=== PATIENT | male | born 1970 | race Caucasian/White ===

== ENCOUNTER 2020-06-10 08:31 | Day surgery (SDC) | payer MEDICAID, SELFPAY ==
[2020-06-04 13:54] VITALS: BMI 28.4
--- NOTE | 2020-06-08 15:22 | P.CONAN_ITS ---
Documented by User: Antonietta Perea 06/08/20 15:23 HPI - Anesthesia Eval Consult details Narrative: 49yo M for Colonoscopy Recent polysub binge? per RN assess, will screen DOS PMFSH Past Medical History Medical History Asthma Diabetes Elevated cholesterol HIV (human immunodeficiency virus infection) HTN (hypertension) Hx of duodenal ulcer No family history of adverse response to anesthesia Sleep apnea Surgical History Surgical History (Updated 06/04/20 @ 14:00 by Ema Christiansen) History of esophagogastroduodenoscopy (EGD) Hx of cholecystectomy Social History Social History Alcohol intake: current Alcohol intake frequency: 3 or more drinks per day Smoking Status: Current every day smoker Tobacco Type: Cigarette Years Smoked: 30 Smoked in Last 30 Days: Yes Use of substances other than those prescribed or required for medical reasons: Yes Substance Use Type: Crack/Cocaine Substance Use Frequency: Recent Binge Advance Directives Information Provided: No Recently lost weight without trying: No Meds Allergies Allergy/AdvReac Type Severity Reaction Status Date / Time No Known Allergies Allergy Verified 06/04/20 14:04 Home Medications Medication Instructions Recorded Confirmed Type exrtaffu-qlsrfyqfjxet-cqwlxgn 1 tab PO QPM 06/04/20 06/04/20 History [Triumeq] albuterol sulfate 2 puff INHALATION Q4-6H PRN 06/04/20 06/04/20 History fenofibrate 160 mg PO DAILY 06/04/20 06/04/20 History hydroxyzine pamoate 25 mg PO BID PRN 06/04/20 06/04/20 History lisinopril 10 mg PO DAILY 06/04/20 06/04/20 History metformin 500 mg PO BID 06/04/20 06/04/20 History ranitidine HCl 300 mg PO BEDTIME 06/04/20 06/04/20 History rosuvastatin 20 mg PO DAILY 06/04/20 06/04/20 History Exam Exam Date and Time: June 08, 2020 1522 Height,Weight and Vital Signs: Height 5 ft 10 in Weight 89.811 kg Assessment and Plan Assessment Anesthesia Assessment: Chart Reviewed Documented by User: Abena Guzman 06/10/20 11:18 [facility] Past Medical History Medical History Asthma Diabetes Elevated cholesterol HIV (human immunodeficiency virus infection) HTN (hypertension) Hx of duodenal ulcer No family history of adverse response to anesthesia Sleep apnea Surgical History Surgical History (Updated 06/04/20 @ 14:00 by Ema Christiansen) History of esophagogastroduodenoscopy (EGD) Hx of cholecystectomy Social History Social History Alcohol intake: current Alcohol intake frequency: 3 or more drinks per day Smoking Status: Current every day smoker Tobacco Type: Cigarette Years Smoked: 30 Smoked in Last 30 Days: Yes Use of substances other than those prescribed or required for medical reasons: Yes Substance Use Type: Crack/Cocaine Substance Use Frequency: Recent Binge Advance Directives Information Provided: No Recently lost weight without trying: No Meds Allergies Allergy/AdvReac Type Severity Reaction Status Date / Time No Known Allergies Allergy Verified 06/04/20 14:04 Home Medications Medication Instructions Recorded Confirmed Type fmgckqsr-odcftsojuccr-uvgbqob 1 tab PO QPM 06/04/20 06/04/20 History [Triumeq] albuterol sulfate 2 puff INHALATION Q4-6H PRN 06/04/20 06/04/20 History fenofibrate 160 mg PO DAILY 06/04/20 06/04/20 History hydroxyzine pamoate 25 mg PO BID PRN 06/04/20 06/04/20 History lisinopril 10 mg PO DAILY 06/04/20 06/04/20 History metformin 500 mg PO BID 06/04/20 06/04/20 History ranitidine HCl 300 mg PO BEDTIME 06/04/20 06/04/20 History rosuvastatin 20 mg PO DAILY 06/04/20 06/04/20 History Exam Height,Weight and Vital Signs: Vital Signs Temp Pulse Resp BP Pulse Ox 06/10/20 09:04 98.1 F 80 16 111/80 99 Lab Results 06/10/20 06/10/20 Range/Units 09:13 Unknown POC Glucose 155 H (60-115) mg/dL Urine Opiates Screen Not Detected (Not Detect) Ur Barbiturates Screen Not Detected (Not Detect) Ur Phencyclidine Scrn Not Detected (Not Detect) Ur Amphetamines Screen Not Detected (Not Detect) U Benzodiazepines Scrn Not Detected (Not Detect) Urine Cocaine Screen Not Detected (Not Detect) U Marijuana (THC) Screen Not Detected (Not Detect) EKG:NSR 76. QT/QTc. 406/456ms. Normal ECG Trop I High Sens. <3.5ng/L Airway Mallampati Class: II TM Dist: >3cm Neck ROM: Full Heart: RRR Lungs: CTAB Assessment and Plan Assessment Anesthesia Assessment: Anesthesia Plan Discussed and Chart Reviewed Final Anesthetic Review NPO: Yes ASA Class: III Final Preanesthetic Review: No Changes in Pt Med Stat and Anes Risks/Benef Reviewed Patient Risk: Intermediate Anesthetic Plan Anesthetic Plan: MAC: Disposition: Standard PACU
--- NOTE | 2020-06-10 | ECG_ITS ---
Test Reason : HX OF DRUG ABUSE PRE Blood Pressure : / mmHG Vent. Rate : 076 BPM Atrial Rate : 076 BPM P-R Int : 158 ms QRS Dur : 108 ms QT Int : 406 ms P-R-T Axes : 049 -26 030 degrees QTc Int : 456 ms Normal sinus rhythm Left axis deviation RSR' or QR pattern in V1 suggests right ventricular conduction delay Abnormal ECG No significant changes seen Referred By: Abena Guzman Electronically Signed By:GAEL GILBERT MD
--- NOTE | 2020-06-10 08:46 | PC.NURSE ---
patient states he used cocaine two weeks ago
[2020-06-10 09:04] VITALS: BP 111/80; PULSE 80; RESP 16; TEMP 36.7; O2SAT 99
[2020-06-10] MEDS: Lactated Ringers 1,000 ML 100 ML IVCONT (09:11)
--- NOTE | 2020-06-10 09:21 | P.HPSUR_ITS ---
Pre-Procedural Eval Section B Chief Complaint: SCREENING Relevant Family History (Specify if Yes): No Relevant Social History: Other (specify) (cocaine) Present Medications: see Short Stay Collaborative assessment Medical History: Significant History (asthma, HTN, DM, alcohol use in past) History of Previous Operations: Relevant previous surgery/procedure and date(s) (cholecystectomy) Allergies: Allergies Allergy/AdvReac Type Severity Reaction Status Date / Time No Known Allergies Allergy Verified 06/04/20 14:04 Review of Systems Sugical H&P ROS: Negative: Constitution, Cardiovascular, Respiratory, Neurological, Psychiatric, Hem-Onc, Allergic/Immunologic, Gastrointestinal, Gen itourinary, Musculoskeletal, Integumentary, Endocrine and Eyes/Ears/Nose/Throat Exam Surgical H&P Exam: Normal: HEENT, Normal: Heart, Normal: Lungs, Normal: Extremities, Normal: Abdomen, Normal: Skin and Normal: Neurological Plan Diagnosis/Plan: Unchanged Patient has been examined and remains a candidate for the planned procedure
[2020-06-10 09:44] LABS: Amphetamine Screen Urine Not Detected (Not Detect); Barbiturates, Urine Not Detected (Not Detect); Benzodiazepines Screen Urine Not Detected (Not Detect); Cannabinoid Screen Urine Not Detected (Not Detect); Cocaine Screen Urine Not Detected (Not Detect); Opiate Screen Urine Not Detected (Not Detect); Phencyclidine Screen Urine Not Detected (Not Detect)
[2020-06-10 09:49] LABS: Glucose, Whole Blood 155 mg/dL (60-115)
--- NOTE | 2020-06-10 10:08 | PC.NURSE ---
patient awaiting to go to procedure but had an ekg because of history of cocaine use and a trop was drawn pre-op awaiting results. urine sample already sent down this am but lab forget to receive it at 0930 when i was calling for the result.
[2020-06-10 10:44] LABS: Troponin-I High Sensitivity < 3.5 ng/L (<3.5-35.0)
--- NOTE | 2020-06-10 11:34 | PM.OP ---
Brief Operative Note Date of procedure: 06/10/20 Pre-op diagnosis: colon screen Post-op diagnosis: same Procedure: see op note Surgeon: Judith Coppola MD Anesthesia: MAC Estimated blood loss (mL): 0 Condition: stable Disposition: PACU
--- NOTE | 2020-06-10 11:34 | W.PM.OPN ---
Operative Note Operative Note Narrative: Operative Information Procedure Description: Colonoscopy COLONOSCOPY Instrument: Olympus variable stiffness pediatric scope 190L Colonoscopy Monitoring: Vital signs and clinical assessment, continuous EKG monitoring, Pulse oximetry, Carbon Dioxide monitoring and blood pressure monitoring were done throughout the procedure. Colon withdrawal time was 29 minutes. Procedure: The patient was placed in the left lateral decubitis position and pre-procedure medications were administered. After a digital rectal examination of the ano-rectum, the video colonoscope was inserted into the rectum and advanced through the colon to the cecum/TI. The colonoscope was slowly withdrawn in a retrograde panoramic fashion and the colon mucosa was carefully examined including a retroflexed view of the rectum. Findings and interventions are described below. Procedure Difficulty: easy Findings: Terminal Ileum-normal Cecum:normal Ascending Colon: 8 mm sessile polyp seen on retroflexion and removed wtih forceps Transverse Colon -normal Descending Colon:normal Sigmoid Colon: several diverticula noted, at around 40 cm 2 polyps noted arising from a single stalk with the combined lesions measuring about 16-20 mm. The stalk was injected with few cc of epinephrine and then the polyps were removed with hot snare endocut setting. The resulting defect was ablated around the edges with soft tip coag. The stalk base was clipped x 1 and then the top of the defect clipped with x 2 clips-total 3 clips. Rectum: Retroflexion with large internal hemorrhoids, grade II, external hemorrhoid also noted. Anorectum - external hemorrhoid, internal hemorrhoids seen at verge Colon preparation: [place] Bowel Preparation Scale Right colon; 1 Transverse colon: 2 Left colon; 2 (0 = Unprepared colon segment with mucosa not seen due to solid stool that cannot be cleared. 1 = Portion of mucosa of the colon segment seen, but other areas of the colon segment not well seen due to staining, residual stool and/or opaque liquid. 2 = Minor amount of residual staining, small fragments of stool and/or opaque liquid, but mucosa of colon segment seen well. 3 = Entire mucosa of colon segment seen well with no residual staining, small fragments of stool or opaque liquid) Impression and Post Procedure Diagnosis: polyps internal and external hemorrhoids diverticulosis Plan: High fiber diet leaflet Avoid straining at stool, epsom salts and sitz bath, anusol supps or cream prn, may need colorectal referral Repeat Colonoscopy in 6-12 months due to prep come to ED if any worsening abdominal pain or bleeding, avoid nsaid for 1 week Above findings were reviewed with the patient and relevant handouts were provided if indicated.
[2020-06-10 11:40] VITALS: BP 82/40; PULSE 76; RESP 16; TEMP 36.1; O2SAT 99
[2020-06-10 11:46] VITALS: BP 84/52; PULSE 72; RESP 16; O2SAT 98
[2020-06-10 11:57] VITALS: BP 100/55; PULSE 85; RESP 16; O2SAT 98
[2020-06-10 12:05] VITALS: BP 100/69; PULSE 76; RESP 16; O2SAT 98
--- NOTE | 2020-06-10 12:30 | HO.POSTANES ---
Post Anesthesia Evaluation Post Anesthesia Evaluation Vital Signs: Vital Signs Temp Pulse Resp BP Pulse Ox 06/10/20 12:05 97 F 76 16 100/69 98 06/10/20 11:57 85 16 100/55 L 98 06/10/20 11:46 72 16 84/52 L 98 06/10/20 11:40 97 F 76 16 82/40 L 99 06/10/20 09:04 98.1 F 80 16 111/80 99 Anesthesia: Monitored (tiva) Mental Status: Awake Pain Control: Satisfactory Nausea/Vomiting: None Hydration: Adequate Anesthesia-Related Issues: No Anes. Related Issues
== END 2020-06-10 23:59 | disposition home or self-care (01) ==
PROVIDERS: Anesthesiology; PCP Internal Medicine; Visit Provider Internal Medicine Gastroenterology
PROC: 0DJD8ZZ Inspection of Lower Intestinal Tract, Via Natural or Artificial Opening Endoscopic (ICD-10-PCS; CPT 45378; principal; 2020-06-10 10:00)
DX: Z12.11 Encounter for screening for malignant neoplasm of colon (principal); D12.2 Benign neoplasm of ascending colon; D12.5 Benign neoplasm of sigmoid colon; K57.30 Diverticulosis of large intestine without perforation or abscess without bleeding; K64.1 Second degree hemorrhoids; K64.4 Residual hemorrhoidal skin tags; I10 Essential (primary) hypertension; E11.9 Type 2 diabetes mellitus without complications; G47.30 Sleep apnea, unspecified; J45.909 Unspecified asthma, uncomplicated; Z90.49 Acquired absence of other specified parts of digestive tract; B20 Human immunodeficiency virus [HIV] disease; F17.210 Nicotine dependence, cigarettes, uncomplicated; Z79.84 Long term (current) use of oral hypoglycemic drugs; Z79.899 Other long term (current) drug therapy; F14.10 Cocaine abuse, uncomplicated; Z72.89 Other problems related to lifestyle
CPT/HCPCS: 45385; 45380; 45381; 80307; 82947; 84484; 88305; 93005; J0171

== ENCOUNTER 2020-06-18 09:45 | Outpatient (REF) | payer MEDICAID, SELFPAY | END 2020-06-18 09:46 | disposition home or self-care (01) | LOC: HO.LAB 09:45 | PROVIDERS: Visit Provider Internal Medicine | DX: Z20.828 Contact with and (suspected) exposure to other viral communicable diseases (principal) | CPT/HCPCS: C9803; U0003 ==

== ENCOUNTER 2020-07-15 13:06 | Outpatient (REF) | payer MEDICAID, SELFPAY | END 2020-07-15 13:07 | disposition home or self-care (01) | LOC: HO.LAB 13:06 | PROVIDERS: PCP Internal Medicine; Visit Provider Internal Medicine | DX: Z20.828 Contact with and (suspected) exposure to other viral communicable diseases (principal) | CPT/HCPCS: C9803; U0003 ==

== ENCOUNTER → 2020-08-02 14:08 | Outpatient (BNVA) | payer MEDICAID, SELFPAY | PROVIDERS: Visit Provider Internal Medicine Gastroenterology | DX: Z76.89 Persons encountering health services in other specified circumstances (principal) ==

== ENCOUNTER 2022-02-20 16:08 | Emergency (ER) | payer MEDICAID, SELFPAY ==
--- NOTE | ~2022-02-20 | XR_ITS ---
EXAMINATION: XR HAND, RIGHT CLINICAL INFORMATION: Hand pain COMPARISON: None TECHNIQUE: PA, lateral, and oblique views of the right hand. FINDINGS: Bones are in normal anatomic alignment with no acute fracture or dislocation. Metallic foreign bodies seen along the dorsal aspect of the wrist at the level of the radiocarpal joint space. XR/XR hand RT 2V IMPRESSION: 4 mm radiopaque foreign body seen along the dorsal soft tissues of the wrist. Underlying bony structures are essentially unremarkable. No acute fracture or dislocation.
[2022-02-20 16:38] VITALS: BP 129/84; PULSE 97; RESP 16; TEMP 36.6; O2SAT 99; BMI 27.3
--- NOTE | 2022-02-20 21:56 | ED.EXTPRO ---
HPI - Extremity Problem General Chief complaint: Extremity Injury, Upper Stated complaint: R hand inj Time Seen by Provider: 02/20/22 21:56 Source: patient Mode of arrival: ambulatory History of Present Illness HPI Narrative: 51-year-old male with a past medical history of asthma, diabetes, HLD, HIV, HTN, sleep apnea, presenting to the ED complaining of right hand crush injury s/p heavy pipe falling on hand this morning. Reports pain with ROM. Denies numbness, tingling, injury to other area MD Complaint: extremity pain and extremity swelling Onset (ago): hour(s) Related Data Home Medications Medication Instructions Recorded Confirmed abacavir 600 mg-dolutegravir 50 1 tab PO QPM 06/04/20 06/04/20 mg-lamivudine 300 mg tablet (Triumeq) albuterol sulfate 90 mcg/actuation 2 puff inhalation Q4-6H PRN 06/04/20 06/04/20 aerosol inhaler Shortness Of Breath fenofibrate 160 mg tablet 160 mg PO DAILY 06/04/20 06/04/20 hydroxyzine pamoate 25 mg capsule 25 mg PO BID PRN Anxiety 06/04/20 06/04/20 lisinopril 10 mg tablet 10 mg PO DAILY 06/04/20 06/04/20 metformin 500 mg tablet 500 mg PO BID 06/04/20 06/04/20 ranitidine HCl 300 mg tablet 300 mg PO BEDTIME 06/04/20 06/04/20 rosuvastatin 20 mg tablet 20 mg PO DAILY 06/04/20 06/04/20 Allergies Allergy/AdvReac Type Severity Reaction Status Date / Time No Known Allergies Allergy Verified 06/04/20 14:04 Review of Systems Review of Systems: Constitutional: No Weight loss, No Fever, No Chills ENT/Mouth: No Ear Pain, No Nasal Congestion, No sore throat, No Rhinorrhea, No Swallowing Difficulty Cardiovascular: No Chest Pain, No SOB Respiratory: No Cough, No Sputum Gastrointestinal: No Nausea, No Vomiting, No Diarrhea, No Constipation, No Abdominal pain Genitourinary: No Dysuria, No Urinary Frequency, No Flank Pain Musculoskeletal: + joint pain, No Myalgias, + Joint Swelling Skin: No Skin Lesions, No rash Neuro: No Weakness, No Numbness, No Paresthesias Yes all other systems are reviewed and are negative Constitutional: Constitutional: Reports as per [facility] Past Medical History Attestation statement: The following information was validated with the patient. Medical History Asthma Diabetes Elevated cholesterol HIV (human immunodeficiency virus infection) HTN (hypertension) Hx of duodenal ulcer No family history of adverse response to anesthesia Sleep apnea Surgical History (Updated 06/04/20 @ 14:00 by Ema Christiansen RN) History of esophagogastroduodenoscopy (EGD) Hx of cholecystectomy Social History Social History Alcohol intake: current Alcohol intake frequency: 3 or more drinks per day Years Smoked: 30 Substance Use Type: Crack/Cocaine Physical Exam Vital Signs: Vital Signs: Last Vital Signs Temp 97.9 F 02/20/22 16:38 Pulse 97 02/20/22 16:38 Resp 16 02/20/22 16:38 BP 129/84 02/20/22 16:38 Pulse Ox 99 02/20/22 16:38 O2 Del Method 02/20/22 16:38 BMI result Body Mass Index 27.3 Const: General: cooperative, healthy appearing and no acute distress Orientation/consciousness: patient oriented x3 Limitations: no limitations HEENT: Head: Yes normal to inspection and Yes atraumatic Ears: hearing grossly normal bilaterally General nose exam: Normal external nose present Face and sinus: Yes normal facial exam Eyes: General: appearance normal, both eyes and all related structures EOM: EOMs intact bilaterally Neck: Neck: Yes normal visual inspection and Yes no meningeal signs Resp: Effort & Inspection: normal respiratory effort and no respiratory distress Cardio: Rate: regular rate Heart sounds: S1 normal heart sound present and S2 normal heart sound present Peripheral pulses: radial pulses present Skin: Rashes: no rashes Wounds: no wounds Neuro: General: patient oriented x3, tone normal and no meningeal signs Gait exam (Neuro): Normal gait present Extrem: Other: Volar aspect of right hand with notable swelling and ecchymosis to 1st and 2nd metacarpals, tender to palpation. Full range of motion intact to hand and digits with pain. Wrist nontender, no snuffbox tenderness. Neurovascularly intact Course Course Course Narrative: XR hand RT 2V IMPRESSION: 4 mm radiopaque foreign body seen along the dorsal soft tissues of the wrist. Underlying bony structures are essentially unremarkable. No acute fracture or dislocation >> patient reports metal foreign body has been in hand x 20 years. Will apply Harvey wrap for compression and comfort Results discussed with patient including worrisome signs and symptoms and strict return precautions, and when to return to the emergency department. They verbalized understanding and feel safe for discharge at this time. MDM - Extremity (Nontraumatic) MDM Narrative Medical decision making narrative: 51-year-old male with a past medical history of asthma, diabetes, HLD, HIV, HTN, sleep apnea, presenting to the ED complaining of right hand crush injury s/p heavy pipe falling on hand this morning. On exam vital signs stable, NAD/nontoxic appearing, physical exam as above. Concern for fracture versus sprain Plan: X-rays Medical Records Attestation: I reviewed the patient's medical records. Lab Data Attestation: I reviewed the patient's lab results. Discharge Plan Discharge Clinical Impression: Hand injury Patient Disposition: Home, Self-Care Instructions: Hand Sprain (ED) Additional Instructions: Your x-ray does not show any fracture. Does show foreign body in her hand which youre aware of. wear Harvey wrap for comfort and stability. Ice, elevate, take Tylenol and Motrin. Follow up with her doctor Prescriptions: No Action metformin 500 mg Tablet 500 mg PO BID ranitidine HCl 300 mg Tablet 300 mg PO BEDTIME lisinopril 10 mg Tablet 10 mg PO DAILY albuterol sulfate 90 mcg/actuation Hfa Aerosol Inhaler 2 puff INHALATION Q4-6H PRN (Reason: Shortness Of Breath) hydroxyzine pamoate 25 mg Capsule 25 mg PO BID PRN (Reason: Anxiety) rosuvastatin 20 mg Tablet 20 mg PO DAILY fenofibrate 160 mg Tablet 160 mg PO DAILY Triumeq 600-50-300 mg Tablet 1 tab PO QPM Referrals: Celia Manriquez MD [Primary Care Provider] -
== END 2022-02-20 22:11 | disposition home or self-care (01) ==
PROVIDERS: Emergency Provider Internal Medicine; PCP Internal Medicine
DX: S67.21XA Crushing injury of right hand, initial encounter (principal); Y29.XXXA Contact with blunt object, undetermined intent, initial encounter; Y93.9 Activity, unspecified; Y92.9 Unspecified place or not applicable; Y99.9 Unspecified external cause status; Z79.899 Other long term (current) drug therapy
CPT/HCPCS: 73120; 99282; 99283

== ENCOUNTER 2022-03-01 15:56 | Emergency (ER) | payer MEDICAID, SELFPAY ==
--- NOTE | ~2022-03-01 | XR_ITS ---
EXAMINATION: XR CHEST CLINICAL INFORMATION: Chest pain COMPARISON: Chest x-ray 07/09/2019 TECHNIQUE: Frontal view of the chest was obtained. FINDINGS: The lungs are clear. No airspace consolidation, pleural effusion, or pneumothorax. The cardiomediastinal silhouette is within normal limits. No acute osseous injury. XR/XR chest 1V IMPRESSION: No acute pulmonary process.
--- NOTE | 2022-03-01 15:59 | ECG_ITS ---
Test Reason : CHEST PAIN Blood Pressure : / mmHG Vent. Rate : 075 BPM Atrial Rate : 075 BPM P-R Int : 158 ms QRS Dur : 102 ms QT Int : 384 ms P-R-T Axes : 048 -25 022 degrees QTc Int : 428 ms Normal sinus rhythm Normal ECG When compared with ECG of 10-JUN-2020 10:53, No significant change was found Referred By: Generic ED Physician Electronically Signed By:BOB TOLENTINO
[2022-03-01 16:26] VITALS: BP 143/86; PULSE 80; RESP 18; TEMP 36.8; O2SAT 98; BMI 28.0
[2022-03-01 16:47] LABS: MANUAL DIFF FLAG NO
[2022-03-01 16:51] LABS: Basophils Absolute Auto 0.1 X10*3/uL (0.0-0.2); Basophils Percent Auto 1.1 % (0-2); Eosinophils Absolute Auto 0.2 X10*3/uL (0.0-0.4); Eosinophils Percent Auto 2.8 % (0-4); Hemoglobin 13.9 g/dl (14.0-18.0); Imm Gran Abs Auto 0.03 X10*3/uL (0.00-0.03); Imm Gran Pct Auto 0.4 % (0.0-0.4); Lymphocytes Absolute Auto 3.4 X10*3/uL (1.2-4.9); Lymphocytes Percent Auto 41.2 % (20-40); Mean Corpuscular HGB Conc 33.9 g/dl (31.0-36.0); Mean Corpuscular Volume 88.6 fL (80.0-98.0); Mean Platelet Volume 9.4 fL (9.4-12.4); Monocytes Absolute Auto 0.4 X10*3/uL (0.1-1.2); Monocytes Percent Auto 5.3 % (2-11); Neutrophils Absolute Auto 4.1 x10*3/uL (2.0-8.3); Neutrophils Percent Auto 49.2 % (45-73); Platelet Count 354 X10*3/uL (160-400); Red Blood Count 4.63 X10*6/uL (4.60-5.80); Red Cell Distribution Width 12.4 % (11.0-16.0); White Blood Count 8.3 X10*3/uL (4.8-10.8)
[2022-03-01 17:01] LABS: Anion Gap 11 (12-20); Blood Urea Nitrogen 18 mg/dL (9-16); Calcium 9.8 mg/dL (8.4-10.2); Carbon Dioxide 26 mmol/L (22-29); Chloride 106 mmol/L (96-108); Creatinine Clr Calc Pharmacy 99.6; Estimated Glomerular Filt Rate > 60; Glucose Random 135 mg/dL (60-115); Potassium 4.3 mmol/L (3.3-5.1); Sodium 139 mmol/L (135-145)
[2022-03-01 17:09] LABS: Troponin-I High Sensitivity < 3.5 ng/L (<3.5-35.0)
[2022-03-01 23:30] LABS: D Dimer High Sensitivity < 150 NG/ML
--- NOTE | 2022-03-01 23:34 | ED.CHESTPAIN ---
HPI - Chest Pain General Chief Complaint: Chest Pain Stated Complaint: chest pain rad. L arm Time Seen by Provider: 03/01/22 22:48 Source: patient Mode of arrival: ambulatory Limitations: no limitations History of Present Illness HPI narrative: This is a 51-year-old male presenting to the emergency department with complaints of chest pain since last night, patient tells me that he woke up with chest discomfort and some shortness of breath. He tells me it is substernal in nature, nonradiating. He tells me it last about a minute and then resolves. He tells me that this is never happened to him before. He reports that he was recently started on doxycycline on Sunday and since he has been taking this he has not been feeling the same. He denies any personal or family cardiac history. Patient is a current daily smoker. He denies shortness of breath, chest pain, nausea, vomiting, dizziness, fevers, chills headache or vision changes at this time. Patient tells me that at this time he is not having symptoms however he wants to get checked out as he did have the symptoms sporadically throughout the day. MD complaint: chest pain Onset (ago): day(s) (1) Timing of current episode: episodic Prior episodes: No Onset: during rest Related Data Home Medications Medication Instructions Recorded Confirmed abacavir 600 mg-dolutegravir 50 1 tab PO QPM 06/04/20 06/04/20 mg-lamivudine 300 mg tablet (Triumeq) albuterol sulfate 90 mcg/actuation 2 puff inhalation Q4-6H PRN 06/04/20 06/04/20 aerosol inhaler Shortness Of Breath fenofibrate 160 mg tablet 160 mg PO DAILY 06/04/20 06/04/20 hydroxyzine pamoate 25 mg capsule 25 mg PO BID PRN Anxiety 06/04/20 06/04/20 lisinopril 10 mg tablet 10 mg PO DAILY 06/04/20 06/04/20 metformin 500 mg tablet 500 mg PO BID 06/04/20 06/04/20 ranitidine HCl 300 mg tablet 300 mg PO BEDTIME 06/04/20 06/04/20 rosuvastatin 20 mg tablet 20 mg PO DAILY 06/04/20 06/04/20 Allergies Allergy/AdvReac Type Severity Reaction Status Date / Time No Known Allergies Allergy Verified 06/04/20 14:04 Review of Systems Review of Systems: Constitutional : No Weight loss, No Fever, No Chills, No Fatigue, No Malaise ENT/Mouth : No sore throat, No Rhinorrhea Eyes: No Eye Pain, No Swelling, No Redness Cardiovascular : No Chest Pain, No SOB, No Dyspnea on Exertion, No Orthopnea, No Edema, No Palpitations Respiratory : No Cough, No Sputum, No Wheezing Gastrointestinal : No Nausea, No Vomiting, No Diarrhea, No Constipation, No abdominal Pain, No Hematochezia, No Melena Genitourinary : No Dysuria, No Urinary Frequency, No Hematuria, Musculoskeletal : No joint pain, No Myalgias, No Joint Swelling Skin : No Skin Lesions, No rash Neuro : No Weakness, No Numbness, No Dizziness, No Headache Psych : No Anxiety/Panic, No Depression All other systems reviewed and are negative Yes all other systems are reviewed and are negative [facility] Past Medical History Attestation statement: The following information was validated with the patient. Source: old records reviewed and nursing notes reviewed Medical History Asthma Diabetes Elevated cholesterol HIV (human immunodeficiency virus infection) HTN (hypertension) Hx of duodenal ulcer No family history of adverse response to anesthesia Sleep apnea Surgical History History of esophagogastroduodenoscopy (EGD) Hx of cholecystectomy Social History Social History Alcohol intake: current Alcohol intake frequency: 3 or more drinks per day Years Smoked: 30 Substance Use Type: Crack/Cocaine Advance Directives: No Advance Directives Information Provided: No Physical Exam Vital Signs: Vital Signs: Last Vital Signs Temp 98.2 F 03/01/22 16:26 Pulse 80 03/01/22 16:26 Resp 18 03/01/22 16:26 BP 143/86 H 03/01/22 16:26 Pulse Ox 98 03/01/22 16:26 O2 Del Method 03/01/22 16:26 BMI result Body Mass Index 28.0 VSS Appearance: Alert.? Oriented X3.? No acute distress.? Head: Normocephalic, atraumatic, no step-offs or deformities Eyes: Pupils equal, round and reactive to light.? ENT: Pharynx normal.? Neck: Normal inspection.? Neck supple.? CVS: Normal heart rate and rhythm.? Pulses normal.?No pain to palpation Respiratory: No respiratory distress.? Breath sounds normal.? Abdomen: Soft and nontender.? Skin: Skin warm and dry.? Normal skin color.? Normal skin turgor.? Extremities: No lower extremity edema.? No calf ttp. 5/5 strength to bilateral upper and lower extremities Neuro: Oriented X 3.? No motor deficit.? No sensory deficit. CN 2-12 intact Course Reevaluation(s) Reevaluation #1: CBC within normal limits. Chemistry with no acute electrolyte abnormalities requiring intervention. Initial troponin negative, EKG nonischemic. Second 1 pending at this time. D-dimer negative, unlikely PE. Chest x-ray with no acute findings. Time: 23:39 Reevaluation #2: Second troponin negative. Again EKG nonischemic, therefore low suspicion for ACS. Patient without chest pain or shortness of breath at this time. Advised him to follow up with Cardiology, and return with new or worsening symptoms. At this time I feel comfortable discharge home with strict return precautions. Time: 23:48 MDM - Chest Pain MDM Narrative Medical decision making narrative: 2230 51 yo m no significant pmhx presents w/ sharp sub sternal cp that is intermittent in nature. Denies sx at this time PE benign Unlikely ACS, PE, cardiomyopathy, pneumonia. Will obtain basic labs, troponin, chest x-ray, EKG Medical Records Data Attestation: I reviewed the patient's medical records. Lab Data Attestation: I reviewed the patient's lab results. Result diagrams: 03/01/22 16:42 03/01/22 16:42 Labs: Lab Results 03/01/22 03/01/22 03/01/22 Range/Units 16:42 16:42 16:42 WBC 8.3 (4.8-10.8) X10*3/uL RBC 4.63 (4.60-5.80) X10*6/uL Hgb 13.9 L (14.0-18.0) g/dl Hct 41.0 L (42.0-52.0) % MCV 88.6 (80.0-98.0) fL MCH 30.0 (27.0-33.0) pg MCHC 33.9 (31.0-36.0) g/dl RDW 12.4 (11.0-16.0) % Plt Count 354 (160-400) X10*3/uL MPV 9.4 (9.4-12.4) fL Immature Gran % (Auto) 0.4 (0.0-0.4) % Neut % (Auto) 49.2 (45-73) % Lymph % (Auto) 41.2 H (20-40) % Gregory % (Auto) 5.3 (2-11) % Eos % (Auto) 2.8 (0-4) % Baso % (Auto) 1.1 (0-2) % Lymph # (Auto) 3.4 (1.2-4.9) X10*3/uL Gregory # (Auto) 0.4 (0.1-1.2) X10*3/uL Eos # (Auto) 0.2 (0.0-0.4) X10*3/uL Baso # (Auto) 0.1 (0.0-0.2) X10*3/uL Abs Immat Gran (auto) 0.03 (0.00-0.03) X10*3/uL Absolute Neuts (auto) 4.1 (2.0-8.3) x10*3/uL Absolute Nucleated RBC 0.000 (0.0-0.012) X10*3/uL Nucleated RBC % (auto) 0.0 (0.0-0.2) /100WBC D-Dimer High Sensitivty NG/ML Sodium 139 (135-145) mmol/L Potassium 4.3 (3.3-5.1) mmol/L Chloride 106 (96-108) mmol/L Carbon Dioxide 26 (22-29) mmol/L Anion Gap 11 L (12-20) BUN 18 H (9-16) mg/dL Creatinine 0.99 (0.5-1.4) mg/dL Estim Creat Clear Calc 99.6 Estimated GFR > 60 Random Glucose 135 H (60-115) mg/dL Calcium 9.8 (8.4-10.2) mg/dL Troponin I High Sens < 3.5 (<3.5-35.0) ng/L 03/01/22 03/01/22 Range/Units 23:05 23:05 WBC (4.8-10.8) X10*3/uL RBC (4.60-5.80) X10*6/uL Hgb (14.0-18.0) g/dl Hct (42.0-52.0) % MCV (80.0-98.0) fL MCH (27.0-33.0) pg MCHC (31.0-36.0) g/dl RDW (11.0-16.0) % Plt Count (160-400) X10*3/uL MPV (9.4-12.4) fL Immature Gran % (Auto) (0.0-0.4) % Neut % (Auto) (45-73) % Lymph % (Auto) (20-40) % Gregory % (Auto) (2-11) % Eos % (Auto) (0-4) % Baso % (Auto) (0-2) % Lymph # (Auto) (1.2-4.9) X10*3/uL Gregory # (Auto) (0.1-1.2) X10*3/uL Eos # (Auto) (0.0-0.4) X10*3/uL Baso # (Auto) (0.0-0.2) X10*3/uL Abs Immat Gran (auto) (0.00-0.03) X10*3/uL Absolute Neuts (auto) (2.0-8.3) x10*3/uL Absolute Nucleated RBC (0.0-0.012) X10*3/uL Nucleated RBC % (auto) (0.0-0.2) /100WBC D-Dimer High Sensitivty < 150 NG/ML Sodium (135-145) mmol/L Potassium (3.3-5.1) mmol/L Chloride (96-108) mmol/L Carbon Dioxide (22-29) mmol/L Anion Gap (12-20) BUN (9-16) mg/dL Creatinine (0.5-1.4) mg/dL Estim Creat Clear Calc Estimated GFR Random Glucose (60-115) mg/dL Calcium (8.4-10.2) mg/dL Troponin I High Sens < 3.5 (<3.5-35.0) ng/L ECG Data ECG #1: Attestation: I personally reviewed and interpreted this ECG as follows: ECG interpretation date: 03/01/22 ECG interpretation time: 23:41 Prior ECG tracings: available for review Interpretation: Ventricular rate of 75, [place] normal, QRS normal, QT/QTC normal. EKG with normal sinus rhythm, no ST elevations or inversions concerning for ischemia. Significant changes when compared to EKG of 06/10/2020. Critical Care Time Critical Care Time Critical Care Time: No Discharge Plan Discharge Clinical Impression: Chest pain not due to acute coronary syndrome Patient Disposition: Home, Self-Care Instructions: Noncardiac Chest Pain (ED), Chest Wall Pain (ED) Additional Instructions: Take your medications as prescribed. If you were prescribed antibiotics today, it is important that you take your medication to their entirety, do not skip any doses, do not finish them early. Follow-up with your primary care provider this week. Return to the emergency department with new or worsening symptoms. Such as fevers, chills, chest pain, shortness of breath, nausea, vomiting, dizziness, headache, vision changes, lethargy In case of emergency call 911 Follow-up with cardiology if symptoms continue. Your laboratory studies today and her chest x-ray looked reassuring. Prescriptions: No Action metformin 500 mg Tablet 500 mg PO BID ranitidine HCl 300 mg Tablet 300 mg PO BEDTIME lisinopril 10 mg Tablet 10 mg PO DAILY albuterol sulfate 90 mcg/actuation Hfa Aerosol Inhaler 2 puff INHALATION Q4-6H PRN (Reason: Shortness Of Breath) hydroxyzine pamoate 25 mg Capsule 25 mg PO BID PRN (Reason: Anxiety) rosuvastatin 20 mg Tablet 20 mg PO DAILY fenofibrate 160 mg Tablet 160 mg PO DAILY Triumeq 600-50-300 mg Tablet 1 tab PO QPM Referrals: Celia Manriquez MD [Primary Care Provider] - 2 days Terrence Yun MD [Physician] - 1 week Stand Alone Forms: Work/School Release
[2022-03-01 23:42] LABS: Troponin-I High Sensitivity < 3.5 ng/L (<3.5-35.0)
[2022-03-01 23:56] VITALS: BP 130/91; PULSE 61; RESP 13; O2SAT 100
--- NOTE | 2022-03-02 00:06 | PC.NURSE ---
no contact with pt until discharge, pt deemed stable for discharge by MD, pt verbalizes understanding of d/c instructions, stable gait noted.
== END 2022-03-02 00:09 | disposition home or self-care (01) ==
PROVIDERS: Physician Assistant; Emergency Provider Internal Medicine; PCP Internal Medicine
DX: R07.89 Other chest pain (principal); B20 Human immunodeficiency virus [HIV] disease; I10 Essential (primary) hypertension; E11.9 Type 2 diabetes mellitus without complications; E78.5 Hyperlipidemia, unspecified; Z79.84 Long term (current) use of oral hypoglycemic drugs; Z79.02 Long term (current) use of antithrombotics/antiplatelets
CPT/HCPCS: 36415; 71045; 80048; 84484; 85025; 85379; 93005; 99284

== ENCOUNTER 2023-03-31 10:38 | Emergency (ER) | payer MEDICAID, SELFPAY ==
--- NOTE | ~2023-03-31 | XR_ITS ---
EXAMINATION: XR ELBOW, LEFT CLINICAL INFORMATION: Pain COMPARISON: None available. TECHNIQUE: AP, lateral, and oblique views of the left elbow. FINDINGS: No acute visible fracture or dislocation. Joint spaces and alignment are maintained. Mild soft tissue prominence along the olecranon, nonspecific. XR/XR elbow LT min 3V IMPRESSION: 1. No acute visible fracture or dislocation. 2. Mild soft tissue prominence along the olecranon, nonspecific.
--- NOTE | 2023-03-31 11:16 | ED.EXTPRO ---
HPI - Extremity Problem General Chief complaint: Extremity Injury, Upper Stated complaint: L elbow pain Time Seen by Provider: 03/31/23 11:23 Source: patient Mode of arrival: ambulatory Limitations: no limitations History of Present Illness HPI Narrative: Patient is a 52-year-old left-hand dominant male presenting emergency department with 1 week of progressively worsening left lateral elbow pain. 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 Reports that pain was tolerable at onset and has significantly worsened over the last 24 hours. He has utilized ibuprofen with little relief. Denies any numbness or tingling to left arm or hand. States pain worsens with extension of elbow. Denies any trauma. MD Complaint: joint pain Onset (ago): day(s) Pain Consistency: constant Location: left and elbow Severity scale (1-10): 8 Quality: aching Radiation: none Relieving factors: nothing Exacerbating factors: range of motion, weight bearing and palpation Associated symptoms: denies other symptoms Related Data Home Medications Medication Instructions Recorded Confirmed abacavir 600 mg-dolutegravir 50 1 tab PO QPM 06/04/20 06/04/20 mg-lamivudine 300 mg tablet (Triumeq) albuterol sulfate 90 mcg/actuation 2 puff inhalation Q4-6H PRN 06/04/20 06/04/20 aerosol inhaler Shortness Of Breath fenofibrate 160 mg tablet 160 mg PO DAILY 06/04/20 06/04/20 hydroxyzine pamoate 25 mg capsule 25 mg PO BID PRN Anxiety 06/04/20 06/04/20 lisinopril 10 mg tablet 10 mg PO DAILY 06/04/20 06/04/20 metformin 500 mg tablet 500 mg PO BID 06/04/20 06/04/20 ranitidine HCl 300 mg tablet 300 mg PO BEDTIME 06/04/20 06/04/20 rosuvastatin 20 mg tablet 20 mg PO DAILY 06/04/20 06/04/20 Previous Rx's Medication Instructions Recorded ibuprofen 600 mg tablet 600 mg PO Q8H PRN pain #20 tabs 03/31/23 Allergies Allergy/AdvReac Type Severity Reaction Status Date / Time No Known Allergies Allergy Verified 03/31/23 11:21 Review of Systems Review of Systems: As per HPI. Yes all other systems are reviewed and are negative Constitutional: Constitutional: Reports as per HPI PMFSH Past Medical History Medical History Asthma Diabetes Elevated cholesterol HIV (human immunodeficiency virus infection) HTN (hypertension) Hx of duodenal ulcer No family history of adverse response to anesthesia Sleep apnea Surgical History History of esophagogastroduodenoscopy (EGD) Hx of cholecystectomy Social History Social History Alcohol intake: current Alcohol intake frequency: 3 or more drinks per day Years Smoked: 30 Substance Use Type: Crack/Cocaine Advance Directives: No Advance Directives Information Provided: No Physical Exam Vital Signs: Vital Signs: Last Vital Signs Temp 98.2 F 03/31/23 11:17 Pulse 76 03/31/23 11:17 Resp 18 03/31/23 11:17 BP 120/88 03/31/23 11:17 Pulse Ox 99 03/31/23 11:17 O2 Del Method Room Air 03/31/23 11:17 BMI result Body Mass Index 26.1 Vital signs have been reviewed and appear to be correct. Blood pressure normal. Heart rate normal. Respiratory rate normal. Temperature normal. Oxygen saturation normal. Const: General: cooperative, healthy appearing and no acute distress Orientation/consciousness: oriented to person, oriented to place, oriented to time and patient oriented x3 Limitations: no limitations HEENT: Head: Yes normocephalic and Yes atraumatic Ears: external ears normal General nose exam: Normal external nose present Face and sinus: Yes face symmetric Mouth: oropharynx normal and moist mucous membranes Throat: Yes uvula midline Eyes: Pupils: Equal, round and reactive pupils present Neck: Neck: Yes normal visual inspection and Yes supple Resp: Effort & Inspection: normal respiratory effort and able to speak in complete sentences Auscultation: clear to auscultation bilaterally Cardio: Rate: regular rate Rhythm: regular rhythm Heart sounds: S1 normal heart sound present and S2 normal heart sound present GI: Palpation (GI): Soft to palpation and nontender Auscultation: normoactive bowel sounds : General: Yes no CVA tenderness Back/Spine/Pelvis: Back: no CVA tenderness Skin: General skin exam: elasticity normal and turgor normal Neuro: General: oriented to person, oriented to place, oriented to time, patient oriented x3, gait normal, tone normal, moves all extremities, Normal light touch and pain sensation, no focal motor deficits, CN's II-XI intact bilaterally and deep tendon reflexes 2+ bilaterally Cranial nerves: Yes Equal, round and reactive pupils present Cognition (Neuro): normal cognition Extrem: General: Yes full ROM, Yes normal exam except as noted, Yes no pedal edema and Yes no calf tenderness Left upper extremity: elbow/forearm Details: tenderness Location: of the lateral epicondyle, swelling Location: of the lateral epicondyle (mild), normal ROM and distal pulses intact; no unusual warmth, no ecchymosis and no crepitus Psych: Mental Status: mental status grossly normal Affect: normal affect Thought process: Normal thought process present Course Course Course Narrative: This is an RME: Additional HPI, ROS, PE not included below will be deferred to primary provider. Patient is 52-year-old male presents emergency department for evaluation of atraumatic left elbow pain. progressive pain over the past week without any identifiable cause, constant. Denies numbness tingling or cold sensation to the hand. pain localized near radial head without redness or warmth Plan: XR elbow Medical Decision Making Medical Decision Making [facility] Narrative: Patient is a 52-year-old left-hand dominant male presenting emergency department with 1 week of progressively worsening left lateral elbow pain. On exam patient is awake, A+Ox3, VS WNL, afebrile, normal neurological exam without focal deficits, tenderness and mild swelling to left lateral epicondyle, full ROM. Given reported symptoms and physical exam findings, initial differential includes lateral elbow tendinopathy, osteoarthritis, effusion. Less likely fracture. X-ray notable for no fracture, mild soft tissue swelling. My interpretation is in agreement with the radiologist's interpretation. Feel symptoms most likely related to lateral elbow tendinopathy. Will apply HARVEY wrap in ED, discussed counterforce brace and compression sleeve with patient, advised alternating Tylenol and ibuprofen, rest, ice, and possibility of requiring physical therapy. Will refer to ortho for further eval, advised patient to follow up with PCP as well. Return precautions discussed at bedside. Patient verbalized understanding of and agreement with plan. Differential Diagnosis Differential Diagnoses: The differential diagnosis associated with the presentation includes As per MDM. Independent Interpretation I performed an independent interpretation of an: Plain X-Ray Interpretation: No acute fracture, mild soft tissue swelling. Radiology Impression Discussion of test interpretation with radiology: I have reviewed the radiologist's reading. Radiologist Impression: XR/XR elbow LT min 3V IMPRESSION: 1.? No acute visible fracture or dislocation. 2.? Mild soft tissue prominence along the olecranon, nonspecific. External Record Review External record reviewed: Inpatient record, Office record and Outpatient record Prescription Management I considered prescription management with: Pain Medication Discharge Plan Discharge Clinical Impression: Left tennis elbow Patient Disposition: Home, Self-Care Instructions: Tennis Elbow (ED) Additional Instructions: You have been evaluated in the emergency department today for left elbow pain. Your evaluation did not find evidence of medical conditions requiring emergent intervention at this time. Your physical exam findings are consistent with tennis elbow, also known as lateral elbow tendinopathy. Please rest, ice, and elevate your elbow, and resume normal activities as tolerated. You were provided with an Harvey wrap in the emergency department today. You can also purchase an [id number] counter force brace or compression sleeve. We recommend you take 600mg ibuprofen every 6 hours or 650mg Tylenol every 6 hours as needed for pain. If needed you can alternate these medications as they take 1 medication every 3 hours. For instance at noon take ibuprofen, then at 3:00 p.m. take Tylenol, then at 6:00 p.m. take ibuprofen. Please schedule an appointment for follow-up with your primary care provider this week as you may require physical therapy to improve your symptoms. Return to the emergency department if you experience worsening pain, numbness, tingling, change of color in your arm, or any other concerning symptoms. You can also follow-up with the orthopedic office if her symptoms do not begin to improve in 1-2 weeks. Prescriptions: New ibuprofen 600 mg tablet 600 mg PO Q8H PRN (Reason: pain) Qty: 20 0RF No Action metformin 500 mg Tablet 500 mg PO BID ranitidine HCl 300 mg Tablet 300 mg PO BEDTIME lisinopril 10 mg Tablet 10 mg PO DAILY albuterol sulfate 90 mcg/actuation Hfa Aerosol Inhaler 2 puff INHALATION Q4-6H PRN (Reason: Shortness Of Breath) hydroxyzine pamoate 25 mg Capsule 25 mg PO BID PRN (Reason: Anxiety) rosuvastatin 20 mg Tablet 20 mg PO DAILY fenofibrate 160 mg Tablet 160 mg PO DAILY Triumeq 600-50-300 mg Tablet 1 tab PO QPM Referrals: [facility] [place] [facility] [Provider Group]
[2023-03-31 11:17] VITALS: BP 120/88; PULSE 76; RESP 18; TEMP 36.8; O2SAT 99; BMI 26.1
== END 2023-03-31 13:27 | disposition home or self-care (01) ==
PROVIDERS: Emergency Provider Student in an Organized Health Care Education/Training Program; PCP Internal Medicine
DX: M77.12 Lateral epicondylitis, left elbow (principal); M25.522 Pain in left elbow
CPT/HCPCS: 73080; 99282; 99283

== ENCOUNTER 2023-05-09 | Outpatient (REF) | payer MEDICAID, SELFPAY | END 2023-05-09 00:01 | disposition home or self-care (01) | LOC: HO.HHCLNP | PROVIDERS: Visit Provider Internal Medicine | DX: R05.9 Cough, unspecified (principal) | CPT/HCPCS: 0241U ==

== ENCOUNTER 2023-07-11 09:53 | Outpatient (REF) | payer MEDICAID, SELFPAY ==
[2023-07-11 11:07] LABS: MANUAL DIFF FLAG NO
[2023-07-11 11:33] LABS: Basophils Absolute Auto 0.1 X10*3/uL (0.0-0.2); Basophils Percent Auto 1.4 % (0-2); Eosinophils Absolute Auto 0.1 X10*3/uL (0.0-0.4); Eosinophils Percent Auto 2.2 % (0-4); Hematocrit 42.9 % (42.0-52.0); Hemoglobin 14.6 g/dl (14.0-18.0); Imm Gran Abs Auto 0.02 X10*3/uL (0.00-0.03); Imm Gran Pct Auto 0.3 % (0.0-0.4); Lymphocytes Absolute Auto 2.8 X10*3/uL (1.2-4.9); Lymphocytes Percent Auto 43.4 % (20-40); Mean Corpuscular Hemoglobin 28.8 pg (27.0-33.0); Mean Corpuscular Volume 84.6 fL (80.0-98.0); Mean Platelet Volume 9.8 fL (9.4-12.4); Monocytes Absolute Auto 0.5 X10*3/uL (0.1-1.2); Monocytes Percent Auto 8.4 % (2-11); Neutrophils Absolute Auto 2.9 x10*3/uL (2.0-8.3); Neutrophils Percent Auto 44.3 % (45-73); Platelet Count 284 X10*3/uL (160-400); Red Blood Count 5.07 X10*6/uL (4.60-5.80); Red Cell Distribution Width 12.7 % (11.0-16.0); White Blood Count 6.4 X10*3/uL (4.8-10.8)
[2023-07-11 11:51] LABS: Cholesterol 288 mg/dL (<200); HDL Cholesterol 37 mg/dL (>40); Triglycerides 441 mg/dL (<150)
[2023-07-11 11:57] LABS: Creatinine Urine 148.58 mg/dL; Microalbum/Creatinine Ratio Ur 23.5 ug/mg cr (<30)
[2023-07-11 12:02] LABS: HBS Num1 0.15 mIU/mL (0-7.99); HBc Num1 0.14 S/CO (0.00-0.79); HBsAGNum1 0.27 S/CO (0.00-0.99); Hepatitis A Antibody IgM 0.18 Index (0-0.79); Hepatitis B Core Antibody Nonreactive (Nonreactive); Hepatitis B Surface Antigen Negative (Negative); ~HepC Num1 0.16 S/CO (0.00-0.79); ~Hepatitis A Antibody IgM Nonreactive (Nonreactive); ~Hepatitis B Surface Antibody NONREACTIVE (Nonreactive); ~Hepatitis C Antibody Nonreactive (Nonreactive)
[2023-07-11 12:09] LABS: Alanine Aminotransferase 44 U/L (0-40); Albumin Level 4.3 g/dL (3.5-5.0); Alkaline Phosphatase 67 U/L (39-117); Anion Gap 15 (12-20); Aspartate Amino Transferase 31 U/L (5-37); Bilirubin Total 0.7 mg/dL (0.0-1.0); Blood Urea Nitrogen 13 mg/dL (9-16); Carbon Dioxide 23 mmol/L (22-29); Chloride 104 mmol/L (96-108); Estimated Glomerular Filt Rate > 60; Glucose Random 189 mg/dL (60-115); Potassium 3.8 mmol/L (3.3-5.1); Sodium 138 mmol/L (135-145); TSH reflex Free T4 1.51 uIU/mL (0.32-4.0); Vitamin D 25-OH Total 35.4 ng/mL (>30)
[2023-07-11 12:29] LABS: Reflex LDLD? Yes
[2023-07-12 06:44] LABS: LDL Cholesterol Direct 153 mg/dL (<100)
[2023-07-12 10:08] LABS: Absolute CD3 Count 2146 cells/uL (840-3060); Absolute CD4 Count 959 cells/uL (490-1740); Absolute CD8 Count 1113 cells/uL (180-1170); Absolute Lymphocytes 2857 cells/uL (850-3900); CD4 CD8 Ratio 0.86 (0.86-5.00); Percent CD3 Cells 75 % (57-85); Percent CD4 Cells 34 % (30-61); Percent CD8 Cells 39 % (12-42)
[2023-07-13 12:27] LABS: TS Negative Control Passed; TS Panel A 0; TS Panel B 1; TS Positive Control Passed; TSpotTB Negative (Negative)
[2023-07-14 19:04] LABS: HIV RNA PCR Qn Copies 14800 copies/mL (NOT DETECTED); HIV RNA PCR Qn Log Copies 4.17 (NOT DETECTED)
== END 2023-07-11 09:54 | disposition home or self-care (01) ==
LOC: HO.HHCL 09:53
PROVIDERS: Visit Provider Internal Medicine
DX: Z11.1 Encounter for screening for respiratory tuberculosis (principal); Z21 Asymptomatic human immunodeficiency virus [HIV] infection status; I10 Essential (primary) hypertension; E11.65 Type 2 diabetes mellitus with hyperglycemia; M77.12 Lateral epicondylitis, left elbow
CPT/HCPCS: 36415; 80053; 80061; 82043; 82306; 82570; 83721; 84443; 85025; 86359; 86360; 86481; 86704; 86706; 86709; 86803; 87340; 87536

== ENCOUNTER 2023-08-30 11:19 | Outpatient (REF) | payer MEDICAID, SELFPAY ==
[2023-09-01 14:13] LABS: HIV RNA PCR Qn Copies 78 copies/mL (NOT DETECTED); HIV RNA PCR Qn Log Copies 1.89 (NOT DETECTED)
== END 2023-08-30 11:20 | disposition home or self-care (01) ==
LOC: HO.HHCL 11:19
PROVIDERS: Visit Provider Student in an Organized Health Care Education/Training Program
DX: Z21 Asymptomatic human immunodeficiency virus [HIV] infection status (principal)
CPT/HCPCS: 36415; 87536

== ENCOUNTER 2023-10-05 08:34 | Outpatient (REF) | payer MEDICAID, SELFPAY ==
--- NOTE | 2023-10-05 09:21 | MHC.AU.HA1 ---
Hearing Aid Evaluation Date of Visit: 10/05/23 Historical Information: Description of Hearing: Mild to moderate sensorineural hearing loss Ad, WNL As. Summary: Pt accompanied by today. Recent eval and medical clearance from ENT WNE provided. Reports sudden loss Ad. Recommended RITE. Pt prefers rechargeable option. Discussed benefits and limitations of amplification. 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 He may be able to comfortably use over the ear muffs with the hearing aid or may need to take the hearing aid off at work as needed, he will have to try this out and see what works best for him. Otoscopy clear Ad. Hearing Aid Prescription: Based on the individual?s shared listening needs, communication environments, dexterity, desire for connectivity, and personal preferences, the following prescription for amplification has been made: Right ear: Make, Model, Color: [employer] Real 2 miniRITE R, chroma beige Battery Size: Rechargeable Tool Carrier/Slim Tube: 2/85 Type of Earmold/Dome/CShell/SlimTip: 8mm power Accessories/Assistive Technology Recommended: plant quality manager Plan of Care: Patient wishes to purchase hearing aids as prescribed Action Taken/Action Needed: Hearing Instrument Fitting to be scheduled when materials arrive Primary Diagnosis: H90.41 SNHL Unilateral Right Ear, W/Unrestricted Contralateral Hearing Signature: Provider: Negrito Elam, [facility]
== END 2023-10-05 08:35 | disposition home or self-care (01) ==
LOC: HO.HAP 08:34
PROVIDERS: Visit Provider Otolaryngology
DX: Z46.1 Encounter for fitting and adjustment of hearing aid (principal); H90.41 Sensorineural hearing loss, unilateral, right ear, with unrestricted hearing on the contralateral side
CPT/HCPCS: 92590

== ENCOUNTER 2023-10-18 09:25 | Outpatient (REF) | payer MEDICAID, SELFPAY ==
--- NOTE | 2023-10-18 10:31 | MHC.AU.HA2 ---
Hearing Instrument Fitting- Adult- Binaural Date of Visit: 10/18/23 Hearing Instruments Dispensed: Right Ear: Make, Model, Color, Serial Number: [employer] Real 2 miniRITE R, chroma beige [id number] Splicing Machine Operator Repair Warranty: 11/03/2026 Splicing Machine Operator Loss and Damage Warranty: 11/03/2026 [facility] Service Plan: 10/17/2024 Battery Size: Rechargeable Technical Account Executive/Slim Tube: 2/85 Earmold/Dome/CShell/SlimTip: 8mm power Type of Wax Guard: Minifit Pro Wax Accessories/Assistive Technology: Oticon minitrite catering operations manager S#[id number] warranty 11/03/2026 Summary of Fitting: Fit with and oriented to O[employer]on Real 2 miniRITE R EDWARDS right ear. Verified to DSL 5 Adult targets. Reduced to adaptation 1 with gradual automatic increase. Counseled on adjustment to amplification. VC enabled and reviewed use. Demonstrated charging. Practiced insertion and removal. Demonstrated cleaning and maintenance. Recommendations: Recommendations: Hearing instrument care and maintenance were discussed and practiced. A hearing instrument follow-up was scheduled. Please call our clinic with any questions or concerns. Diagnosis Code(s): Primary Diagnosis: H90.41 SNHL Unilateral Right Ear, W/Unrestricted Contralateral Hearing Signature: Provider: Negrito Elam, [facility]
== END 2023-10-18 09:26 | disposition home or self-care (01) ==
LOC: HO.HAP 09:25
PROVIDERS: Visit Provider Otolaryngology
DX: Z46.1 Encounter for fitting and adjustment of hearing aid (principal); H90.41 Sensorineural hearing loss, unilateral, right ear, with unrestricted hearing on the contralateral side
CPT/HCPCS: V5011; V5020; V5241; V5257

== ENCOUNTER 2023-11-01 09:45 | Outpatient (REF) | payer MEDICAID, SELFPAY ==
--- NOTE | ~2023-11-01 | MR_ITS ---
EXAMINATION: MR BRAIN WITHOUT AND WITH CONTRAST CLINICAL INFORMATION: 53-year-old with sudden idiopathic right-sided hearing loss. COMPARISON: None available. TECHNIQUE: Multiplanar, multisequence MRI of the brain was obtained before and after the intravenous administration of 10 mL Gadavist. FINDINGS: IACs: Bilaterally symmetric, no mass lesions or abnormal enhancement. CN VII-VIII complexes normal. AICA Loops: None Membranous Labyrinths: Normal, no abnormal enhancement, normal fluid signal. CP Angle Cisterns: No mass lesions or abnormal enhancement. Brain Volume: Within normal limits within the limitations of qualitative assessment. Brain and Meninges: DWI sequence demonstrates no restricted diffusion to suggest acute or subacute cerebral ischemia. There is a 2.5 mm nonenhancing T2 hyperintensity in the right frontal subcortical white matter which is nonspecific. Punctate FLAIR signal hyperintensity left posterior temporal subcortical white matter, also a nonspecific finding. Incidental developmental venous anomaly noted in the mesial right parietal lobe, normal variant. Gradient refocused imaging demonstrates no abnormal susceptibility-weighted signal loss to suggest hemorrhage, hemosiderin staining or abnormal mineralization. On image 9 of series 10, there is a 4 mm faint patchy zone of enhancement in the central dorsal aydee, which is a nonspecific finding; although there is no corresponding susceptibility-weighted signal loss or T2 hyperintensity, it is possible that this could reflect a subtle capillary telangiectasia. Otherwise, no other extra-axial fluid collections, intracranial mass lesions, space-occupying process or pathologic intracranial enhancement are identified. Vessels: Normal signal voids are seen in the visualized major intracranial vessels, limited assessment. Ventricles and Subarachnoid Spaces: The ventricular system and subarachnoid spaces are within normal range; there is no hydrocephalus. Orbital Structures: The visualized orbital structures are grossly unremarkable within the limitations of the study. Osseous Structures, Sinuses/Mastoids, Extracranial Soft Tissues: Unremarkable MR/MR head/brain wo/w con IMPRESSION: 1. Normal appearance to the IACs, inner ear structures and CP angle cisterns. No mass lesions or abnormal enhancement are identified. 2. A few nonspecific nonenhancing white matter T2 hyperintensities in the cerebral hemispheres are noted. 3. A 4 mm faint patchy zone of enhancement in the central dorsal aydee, which is a nonspecific finding. It is possible that this could reflect a subtle capillary telangiectasia. Follow-up MRI of the brain with contrast is recommended in 6 months to reassess. 4. Developmental venous anomaly in the mesial right parietal lobe, normal variant.
[2023-11-01] MEDS: gadobutroL 10 ML VIAL IVPUSH (10:52)
== END 2023-11-01 09:46 | disposition home or self-care (01) ==
LOC: HO.MRI 09:45
PROVIDERS: PCP Internal Medicine; Visit Provider Physician Assistant
DX: H91.21 Sudden idiopathic hearing loss, right ear (principal)
CPT/HCPCS: 70553; A9585

== ENCOUNTER 2023-11-02 08:11 | Outpatient (REF) | payer MEDICAID, SELFPAY ==
--- NOTE | 2023-11-02 08:31 | MHC.AU.HA3 ---
Hearing Instrument Follow-Up Date of Visit: 11/02/23 Right Ear: Make, Model, Color, Serial Number: Oticon Real 2 miniRITE R, chroma beige [id number] [employer] Repair Warranty: 11/03/2026 [employer] Loss and Damage Warranty: 11/03/2026 [facility] Service Plan: 10/17/2024 Battery Size: Rechargeable Associate Counsel/Slim Tube: 2/85 Earmold/Dome/CShell/SlimTip:8mm power Type of Wax Guard: Minifit Pro Wax Dispensed By: [facility] Date of Fittin10/18/23 Follow-Up Summary: Reports good satisfaction with the hearing aid. Has used the VC to adjust as needed, in some situations has felt like the TV or radio was too loud. No programming adjustments needed today. Reviewed recommended maintenance. Pt reports having MRI yesterday and will be following up with ENT at some point. Recommendations: Recommendations: Hearing instrument follow-up or maintenance as needed. 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
== END 2023-11-02 08:12 | disposition home or self-care (01) ==
LOC: HO.HAP 08:11
PROVIDERS: Visit Provider Otolaryngology
DX: Z13.89 Encounter for screening for other disorder (principal)

== ENCOUNTER 2024-01-04 09:08 | Outpatient (REF) | payer MEDICAID, SELFPAY ==
[2024-01-04 11:17] LABS: MANUAL DIFF FLAG NO
[2024-01-04 11:25] LABS: Basophils Absolute Auto 0.1 X10*3/uL (0.0-0.2); Basophils Percent Auto 0.7 % (0-2); Eosinophils Absolute Auto 0.1 X10*3/uL (0.0-0.4); Eosinophils Percent Auto 1.9 % (0-4); Hematocrit 46.3 % (42.0-52.0); Hemoglobin 15.7 g/dl (14.0-18.0); Imm Gran Abs Auto 0.02 X10*3/uL (0.00-0.03); Imm Gran Pct Auto 0.3 % (0.0-0.4); Lymphocytes Absolute Auto 2.5 X10*3/uL (1.2-4.9); Lymphocytes Percent Auto 32.9 % (20-40); Mean Corpuscular HGB Conc 33.9 g/dl (31.0-36.0); Mean Corpuscular Hemoglobin 29.8 pg (27.0-33.0); Mean Corpuscular Volume 87.9 fL (80.0-98.0); Mean Platelet Volume 9.9 fL (9.4-12.4); Monocytes Absolute Auto 0.4 X10*3/uL (0.1-1.2); Monocytes Percent Auto 5.7 % (2-11); Neutrophils Absolute Auto 4.4 x10*3/uL (2.0-8.3); Neutrophils Percent Auto 58.5 % (45-73); Platelet Count 292 X10*3/uL (160-400); Red Blood Count 5.27 X10*6/uL (4.60-5.80); Red Cell Distribution Width 12.7 % (11.0-16.0); White Blood Count 7.5 X10*3/uL (4.8-10.8)
[2024-01-04 11:40] LABS: Alanine Aminotransferase 29 U/L (0-40); Albumin Level 4.5 g/dL (3.5-5.0); Alkaline Phosphatase 67 U/L (39-117); Anion Gap 16 (12-20); Aspartate Amino Transferase 23 U/L (5-37); Bilirubin Total 0.8 mg/dL (0.0-1.0); Blood Urea Nitrogen 16 mg/dL (9-16); Calcium 9.8 mg/dL (8.4-10.2); Carbon Dioxide 22 mmol/L (22-29); Chloride 107 mmol/L (96-108); Estimated Glomerular Filt Rate > 60; Glucose Random 160 mg/dL (60-115); Potassium 3.8 mmol/L (3.3-5.1); Sodium 141 mmol/L (135-145); Total Protein 7.5 g/dL (6.5-8.0)
[2024-01-04 12:07] LABS: Creatinine Urine 53.67 mg/dL; Microalbum/Creatinine Ratio Ur 14.9 ug/mg cr (<30)
[2024-01-04 12:27] LABS: Syphilis Screen Nonreactive (Nonreactive)
[2024-01-04 12:38] LABS: Vitamin B12 386 pg/mL (200-900)
[2024-01-04 13:16] LABS: CT PCR NOT DETECTED (Not Detect.); NG PCR NOT DETECTED (Not Detect.)
[2024-01-07 13:03] LABS: Absolute CD3 Count 1752 cells/uL (840-3060); Absolute CD4 Count 703 cells/uL (490-1740); Absolute CD8 Count 963 cells/uL (180-1170); Absolute Lymphocytes 2466 cells/uL (850-3900); CD4 CD8 Ratio 0.73 (0.86-5.00); Percent CD3 Cells 71 % (57-85); Percent CD4 Cells 28 % (30-61); Percent CD8 Cells 39 % (12-42)
[2024-01-08 11:03] LABS: HIV RNA PCR Qn Copies 59 copies/mL (NOT DETECTED); HIV RNA PCR Qn Log Copies 1.77 (NOT DETECTED)
== END 2024-01-04 09:09 | disposition home or self-care (01) ==
LOC: HO.HHCL 09:08
PROVIDERS: Referring Provider Internal Medicine; Visit Provider Student in an Organized Health Care Education/Training Program
DX: Z21 Asymptomatic human immunodeficiency virus [HIV] infection status (principal); E11.65 Type 2 diabetes mellitus with hyperglycemia
CPT/HCPCS: 0353U; 36415; 80053; 82043; 82570; 82607; 85025; 86359; 86360; 86780; 87536

== ENCOUNTER 2024-01-24 12:34 | Outpatient (REF) | payer MEDICAID, SELFPAY ==
--- NOTE | ~2024-01-24 | MM_ITS ---
EXAMINATION: BONE DENSITOMETRY CLINICAL INDICATION: HIV positive, bony pain rule out osteoporosis COMPARISON: This is the patient's baseline examination. TECHNIQUE: Using a [employer] DXA System (software version: 13.1) manufactured by [employer], dual-energy x-ray absorptiometry was performed of the lumbar spine and left hip. The images are of good technical quality. Summary results are attached. FINDINGS: LEFT FEMUR, NECK: BMD 1.049 g/cm2, Z-score 0.5, T-score -0.2, normal. LEFT FEMUR, TOTAL: BMD 1.132 g/cm2, Z-score 0.5, T-score 0.2, normal. AP SPINE L1-L4: BMD 1.276 g/cm2, Z-score 0.5, T-score 0.5, normal. IDENTIFIED RISK FACTORS: None listed. HISTORY OF FRACTURE: None listed. MEDICATIONS: None listed. MM/XR DEXA axial skeleton IMPRESSION: 1. DIAGNOSIS: Normal bone density based on the lowest T-score value of -0.2 in the femoral neck applying World Health Organization criteria. 2. 10-YEAR FRACTURE RISK PREDICTION, FRAX: According to the guidelines, FRAX calculation should only be performed on patients in the osteopenia bone density category. Therefore, FRAX was not performed on this patient. 3. Treatment Recommendations: NOF guidelines recommend consideration for treatment in postmenopausal women and men age 50 and older presenting with the following: -A hip or vertebral (clinical or morphometric) fracture. -T-score less than or equal to -2.5 at the femoral neck or spine after appropriate evaluation to exclude secondary causes. -Low bone mass at the hip or spine and a 10-year fracture probability by FRAX of greater than or equal to 3% for hip fracture or greater than or equal to 20% for major osteoporotic fracture based on the [place] adapted WHO algorithm. 4. Other Recommendations: All treatment decisions require clinical judgment and consideration of individual patient factors, including patient preferences, comorbidities, previous drug use, risk factors not captured in the FRAX model (e.g. frailty, falls, vitamin D deficiency, increased bone turnover, interval significant decline in bone density) and possible under or overestimation of fracture risk by FRAX. FUTURE SCAN RECOMMENDATION: People with diagnosed cases of osteoporosis or at high risk for fracture should have regular bone mineral density tests. For patients eligible for Medicare, routine testing is allowed once every 2 years. The testing frequency can be increased to one year for patients who have rapidly progressing disease, those who are receiving or discontinuing medical therapy to restore bone mass, or have additional risk factors.
== END 2024-01-24 12:35 | disposition home or self-care (01) ==
LOC: HO.MAMMO 12:34
PROVIDERS: PCP Internal Medicine; Visit Provider Student in an Organized Health Care Education/Training Program
DX: Z13.820 Encounter for screening for osteoporosis (principal); M89.8X9 Other specified disorders of bone, unspecified site
CPT/HCPCS: 77080

== ENCOUNTER 2024-03-28 10:06 | Outpatient (REF) | payer MEDICAID, SELFPAY ==
[2024-03-28 11:14] LABS: MANUAL DIFF FLAG NO
[2024-03-28 11:17] LABS: Basophils Absolute Auto 0.1 X10*3/uL (0.0-0.2); Basophils Percent Auto 0.7 % (0-2); Eosinophils Absolute Auto 0.1 X10*3/uL (0.0-0.4); Eosinophils Percent Auto 1.6 % (0-4); Hematocrit 45.8 % (42.0-52.0); Hemoglobin 15.7 g/dl (14.0-18.0); Imm Gran Abs Auto 0.01 X10*3/uL (0.00-0.03); Imm Gran Pct Auto 0.1 % (0.0-0.4); Lymphocytes Absolute Auto 2.9 X10*3/uL (1.2-4.9); Lymphocytes Percent Auto 41.4 % (20-40); Mean Corpuscular HGB Conc 34.3 g/dl (31.0-36.0); Mean Corpuscular Hemoglobin 29.7 pg (27.0-33.0); Mean Corpuscular Volume 86.6 fL (80.0-98.0); Mean Platelet Volume 9.8 fL (9.4-12.4); Monocytes Absolute Auto 0.4 X10*3/uL (0.1-1.2); Monocytes Percent Auto 5.5 % (2-11); Neutrophils Absolute Auto 3.5 x10*3/uL (2.0-8.3); Neutrophils Percent Auto 50.7 % (45-73); Platelet Count 282 X10*3/uL (160-400); Red Blood Count 5.29 X10*6/uL (4.60-5.80); Red Cell Distribution Width 12.9 % (11.0-16.0)
[2024-03-28 12:00] LABS: Alanine Aminotransferase 34 U/L (0-40); Albumin Level 4.5 g/dL (3.5-5.0); Alkaline Phosphatase 72 U/L (39-117); Anion Gap 12 (12-20); Aspartate Amino Transferase 23 U/L (5-37); Bilirubin Direct 0.2 mg/dL (0.0-0.5); Bilirubin Total 0.9 mg/dL (0.0-1.0); Blood Urea Nitrogen 13 mg/dL (9-16); Calcium 9.9 mg/dL (8.4-10.2); Carbon Dioxide 25 mmol/L (22-29); Chloride 107 mmol/L (96-108); Cholesterol 176 mg/dL (<200); Estimated Glomerular Filt Rate > 60; Glucose Random 182 mg/dL (60-115); HDL Cholesterol 41 mg/dL (>40); LDL Cholesterol Calculated 88 mg/dL (<100); Potassium 3.9 mmol/L (3.3-5.1); Sodium 140 mmol/L (135-145); Total Protein 7.7 g/dL (6.5-8.0); Triglycerides 239 mg/dL (<150)
[2024-03-28 14:19] LABS: Reflex LDLD? No
[2024-03-30 12:13] LABS: HIV RNA PCR Qn Copies 167 copies/mL (NOT DETECTED); HIV RNA PCR Qn Log Copies 2.22 (NOT DETECTED)
[2024-04-09 23:08] LABS: HIV 1 Integrase Proviral DNA DETECTED; HIV 1 PR RT Proviral DNA DETECTED
== END 2024-03-28 10:07 | disposition home or self-care (01) ==
LOC: HO.HHCL 10:06
PROVIDERS: Internal Medicine; Visit Provider Student in an Organized Health Care Education/Training Program
DX: E11.65 Type 2 diabetes mellitus with hyperglycemia (principal); Z21 Asymptomatic human immunodeficiency virus [HIV] infection status; E78.2 Mixed hyperlipidemia
CPT/HCPCS: 36415; 80053; 80061; 80076; 82248; 85025; 87536; 87900; 87901; 87906

== ENCOUNTER 2024-04-28 08:29 | Outpatient (REF) | payer MEDICAID, SELFPAY ==
[2024-04-28 12:01] LABS: Cholesterol 163 mg/dL (<200); HDL Cholesterol 41 mg/dL (>40); LDL Cholesterol Calculated 60 mg/dL (<100); Triglycerides 311 mg/dL (<150)
[2024-04-28 12:43] LABS: Reflex LDLD? No
== END 2024-04-28 08:30 | disposition home or self-care (01) ==
LOC: HO.HHCL 08:29
PROVIDERS: Visit Provider Internal Medicine
DX: E11.65 Type 2 diabetes mellitus with hyperglycemia (principal)
CPT/HCPCS: 36415; 80061

== ENCOUNTER 2024-04-29 16:38 | Outpatient (REF) | payer MEDICAID, SELFPAY ==
--- NOTE | ~2024-04-29 | XR_ITS ---
EXAMINATION: XR SHOULDER, RIGHT CLINICAL INFORMATION: pt w chronic bl shoudler pain COMPARISON: None available. TECHNIQUE: AP external rotation, Grashey, scapular Y, and axillary views of the right shoulder. FINDINGS: No fracture, dislocation, or suspicious bone lesion. Normal alignment and mineralization. Mild arthritic changes in the glenohumeral joint present manifested by mild joint space narrowing. No significant spurring. Humeral head is normal in contour. There is moderate spurring of the AC joint both superiorly and inferiorly. Mild possible encroachment upon the subacromial recess/supraspinatus outlet. Neutral lateral acromion. Remainder the bones and soft tissues appear normal. XR/XR shoulder RT min 2V IMPRESSION: 1. No acute findings right shoulder. 2. Mild glenohumeral joint and moderate AC joint osteoarthrosis. Electronically signed by: Kane Vaughan MD 07/07/2024 11:04 AM [facility]
--- NOTE | ~2024-04-29 | XR_ITS ---
EXAMINATION: XR ELBOW, LEFT CLINICAL INFORMATION: left elbow pain-chronic . COMPARISON: 03/31/2023. TECHNIQUE: AP, lateral, and oblique views of the left elbow. FINDINGS: No fracture, dislocation, or focal bone abnormality. There is normal mineralization and alignment. There is no evidence of joint effusion. Joint spaces appear preserved. No significant arthritic change. Small enthesophyte involving the lateral epicondyle. Normal soft tissues. XR/XR elbow LT min 3V IMPRESSION: 1. No acute findings left elbow. No joint effusion. 2. Small enthesophyte lateral epicondyle. Electronically signed by: Kane Vaughan MD 07/07/2024 10:58 AM [facility]
--- NOTE | ~2024-04-29 | XR_ITS ---
EXAMINATION: XR SHOULDER, LEFT CLINICAL INFORMATION: pt w chronic bl shoudler pain COMPARISON: None available. TECHNIQUE: AP external rotation, Grashey, scapular Y, and axillary views of the left shoulder. FINDINGS: No fracture, dislocation, or suspicious bone lesion. Normal alignment and mineralization. Mild arthritic changes in the glenohumeral joint present manifested by mild joint space narrowing. No significant spurring. Humeral head is normal in contour. There is moderate spurring of the AC joint both superiorly and inferiorly. No definite encroachment upon the subacromial recess or supraspinatus outlet. Neutral lateral acromion. Remainder the bones and soft tissues appear normal. XR/XR shoulder LT min 2V IMPRESSION: 1. No acute findings left shoulder. 2. Mild glenohumeral joint and moderate AC joint osteoarthrosis. Electronically signed by: Kane Vaughan MD 07/07/2024 11:03 AM [facility]
== END 2024-04-29 16:39 | disposition home or self-care (01) ==
LOC: HO.XRAY 16:38
PROVIDERS: PCP Internal Medicine; Visit Provider Student in an Organized Health Care Education/Training Program
DX: M25.522 Pain in left elbow (principal); M25.511 Pain in right shoulder; M25.512 Pain in left shoulder
CPT/HCPCS: 73030; 73080

== ENCOUNTER → 2024-04-29 16:44 | Outpatient (BNV) | payer MEDICAID, SELFPAY | PROVIDERS: PCP Internal Medicine; Visit Provider Radiology Diagnostic Radiology | DX: M25.512 Pain in left shoulder (principal); M25.511 Pain in right shoulder; M25.522 Pain in left elbow | CPT/HCPCS: 73030; 73080 ==

== ENCOUNTER 2024-07-25 10:22 | Outpatient (REF) | payer MEDICAID, SELFPAY ==
[2024-07-25 11:39] LABS: MANUAL DIFF FLAG NO
[2024-07-25 11:41] LABS: Basophils Percent Auto 0.5 % (0-2); Eosinophils Absolute Auto 0.1 X10*3/uL (0.0-0.4); Eosinophils Percent Auto 0.9 % (0-4); Hematocrit 47.9 % (42.0-52.0); Hemoglobin 16.2 g/dl (14.0-18.0); Imm Gran Abs Auto 0.02 X10*3/uL (0.00-0.03); Imm Gran Pct Auto 0.2 % (0.0-0.4); Lymphocytes Absolute Auto 2.1 X10*3/uL (1.2-4.9); Lymphocytes Percent Auto 26.2 % (20-40); Mean Corpuscular HGB Conc 33.8 g/dl (31.0-36.0); Mean Corpuscular Hemoglobin 29.8 pg (27.0-33.0); Mean Corpuscular Volume 88.2 fL (80.0-98.0); Mean Platelet Volume 9.4 fL (9.4-12.4); Monocytes Absolute Auto 0.5 X10*3/uL (0.1-1.2); Monocytes Percent Auto 5.7 % (2-11); Neutrophils Absolute Auto 5.4 x10*3/uL (2.0-8.3); Neutrophils Percent Auto 66.5 % (45-73); Platelet Count 294 X10*3/uL (160-400); Red Blood Count 5.43 X10*6/uL (4.60-5.80); Red Cell Distribution Width 12.8 % (11.0-16.0); White Blood Count 8.1 X10*3/uL (4.8-10.8)
[2024-07-25 12:01] LABS: Appearance Urine Clear; Color Urine Yellow; Glucose Urine UA >=1000 mg/dL (Negative); Leukocyte Esterase Urine Negative (Negative); Nitrite Urine Negative (Negative); PH 5.5 (5.0-9.0); Specific Gravity - Urine >= 1.030 (1.005-1.025); UMIC TRIGGER UACC YES; Urine Blood Trace (Negative); Urine Ketones Trace mg/dL (Negative); Urine Protein Negative (Neg-Trace)
[2024-07-25 12:03] LABS: Alanine Aminotransferase 38 U/L (0-40); Alkaline Phosphatase 85 U/L (39-117); Anion Gap 14 (12-20); Aspartate Amino Transferase 31 U/L (5-37); Bilirubin Total 0.8 mg/dL (0.0-1.0); Blood Urea Nitrogen 9 mg/dL (9-16); Calcium 9.8 mg/dL (8.4-10.2); Carbon Dioxide 23 mmol/L (22-29); Chloride 108 mmol/L (96-108); Estimated Glomerular Filt Rate > 60; Glucose Random 125 mg/dL (60-115); Potassium 3.8 mmol/L (3.3-5.1); Sodium 141 mmol/L (135-145); Total Protein 8.6 g/dL (6.5-8.0)
[2024-07-25 12:07] LABS: Bacteria Urine None Seen (None Seen); Hyaline Casts Urine 0-2 /LPF (0-2); RBC Urine 0-2 /HPF (0-2); Squamous Epithelial Cell Urine 0-2 /HPF (0-2); WBC Urine 0-5 /HPF (0-5)
[2024-07-25 12:14] LABS: Hepatitis A Antibody IgG REACTIVE (Nonreactive); ~Hepatitis A Antibody IgG 3.79 S/CO (0.00-0.99)
[2024-07-25 12:18] LABS: HBS Num1 1.23 mIU/mL (0-7.99); HBc Num1 0.17 S/CO (0.00-0.79); HBsAGNum1 0.36 S/CO (0.00-0.99); Hepatitis B Core Antibody Nonreactive (Nonreactive); Hepatitis B Surface Antigen Negative (Negative); ~HepC Num1 0.12 S/CO (0.00-0.79); ~Hepatitis B Surface Antibody NONREACTIVE (Nonreactive); ~Hepatitis C Antibody Nonreactive (Nonreactive)
[2024-07-28 13:12] LABS: TS Negative Control Passed; TS Panel A 1; TS Panel B 0; TS Positive Control Passed; TSpotTB Negative (Negative)
[2024-07-29 02:39] LABS: HIV RNA PCR Qn Copies 124 copies/mL (NOT DETECTED); HIV RNA PCR Qn Log Copies 2.09 (NOT DETECTED)
[2024-07-30 13:43] LABS: Absolute CD3 Count 1463 cells/uL (840-3060); Absolute CD4 Count 862 cells/uL (490-1740); Absolute CD8 Count 574 cells/uL (180-1170); Absolute Lymphocytes 1994 cells/uL (850-3900); Percent CD3 Cells 73 % (57-85); Percent CD4 Cells 43 % (30-61); Percent CD8 Cells 29 % (12-42)
== END 2024-07-25 10:23 | disposition home or self-care (01) ==
LOC: HO.HHCL 10:22
PROVIDERS: Visit Provider Student in an Organized Health Care Education/Training Program
DX: Z21 Asymptomatic human immunodeficiency virus [HIV] infection status (principal)
CPT/HCPCS: 36415; 80053; 81001; 85025; 86359; 86360; 86481; 86704; 86706; 86708; 86803; 87340; 87536

== ENCOUNTER 2024-08-13 14:28 | Outpatient (AMB) | payer MEDICAID, SELFPAY ==
--- NOTE | 2024-08-13 14:53 | MHC.OFFVIS ---
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 Patient reports constant pain in his shoulder. He mentions a work njury in 2019 and was seen at here at [facility] [place]. He was given an injection and had no relief, states caused numbness in his whole arm. Tried and failed PT in the past. His pain had eventually subsided however his pain has returned since last year. He has pain with ROM No relief with Tylenol or Motrin. pain with ROM . unable to reach fully behind his back. 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 He states he suffered a work injury in 2019. He was seen in our office in 2020 for this injury and received an injection which she states made the pain worse. He has difficulty with daily activities such as reaching and lifting objects. He states he has done physical therapy with little to no relief. 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 He has full range of motion in all planes. He has a positive Musella's. Tenderness over the proximal biceps tendon. He is able to activate rotator cuff strength however has significant use of accessory muscles in doing so. Neurovascularly intact. Results Reviewed Results Reviewed: X-rays of the right shoulder obtained on 04/29/2024 show significant AC joint arthritis. Assessment & Plan Assessment & Plan (1) Arthritis of right acromioclavicular joint: Code(s): M19.011 - Primary osteoarthritis, right shoulder Category: Medical (2) Tendinitis of right rotator cuff: Code(s): M75.81 - Other shoulder lesions, right shoulder Category: Medical Plan At this time with his history of failed conservative treatment including physical therapy and cortisone injections along with his limited function in the right shoulder, an MRI of the right shoulder has been ordered to further evaluate the integrity of the rotator cuff. Once the scan is complete we will contact him to discuss the next step in his treatment plan. Patient is content with this plan. Orders: Orders MR shoulder RT wo con Today Rodrigo-Bhakti Winn PA-C M77.8 - Other enthesopathies, not elsewhere classified Medications: Discontinued ibuprofen Discontinued Reason: Patient no longer taking 600 mg PO Q8H PRN 20 tabs 0RF pain BRITTA Oh Coding Level of Care Code New Pt Level 3 (97307) Complex EM visit Add On G2211 Diagnoses Arthritis of right acromioclavicular joint M19.011 Tendinitis of right rotator cuff M75.81
[2024-08-13 14:55] VITALS: BMI 26.2
== END 2024-08-13 15:21 | disposition home or self-care (01) ==
PROVIDERS: PCP Internal Medicine; Visit Provider Physician Assistant
DX: M19.011 Primary osteoarthritis, right shoulder (principal); M75.81 Other shoulder lesions, right shoulder
CPT/HCPCS: 99203

== ENCOUNTER → 2024-08-13 14:28 | Outpatient (BNVA) | payer MEDICAID, SELFPAY | PROVIDERS: PCP Internal Medicine; Visit Provider Physician Assistant | DX: M19.011 Primary osteoarthritis, right shoulder (principal); M75.81 Other shoulder lesions, right shoulder | CPT/HCPCS: 99212 ==

== ENCOUNTER 2024-08-18 19:49 | Outpatient (REF) | payer MEDICAID, SELFPAY ==
--- NOTE | ~2024-08-18 | MR_ITS ---
EXAMINATION: MRI RIGHT SHOULDER WITHOUT CONTRAST HISTORY: M77.8 - Other enthesopathies, not elsewhere classified COMPARISON: Correlation is made with plain films of the right shoulder dated 04/29/2024. TECHNIQUE: Coronal T1, T2, and fat suppressed T2, axial fat suppressed proton density, and sagittal T2 weighted MR images of the right shoulder were obtained. FINDINGS: There is moderate osteoarthritis of the AC joint with cartilage loss and osteophyte formation. The glenohumeral joint is maintained. Bone marrow signal intensity is normal. There is no joint effusion. The tendons of the rotator cuff are intact without evidence of a tear. The biceps tendon is normally located. The glenoid labrum is grossly unremarkable in appearance, although evaluation is limited by lack of a joint effusion. MR/MR shoulder RT wo con IMPRESSION: Moderate osteoarthritis of the AC joint. Otherwise unremarkable MRI of the right shoulder. Electronically signed by: Edgar Tom MD 08/20/2024 10:27 AM [facility]
== END 2024-08-18 19:50 | disposition home or self-care (01) ==
LOC: HO.MRI 19:49
PROVIDERS: PCP Internal Medicine; Visit Provider Physician Assistant
DX: M77.8 Other enthesopathies, not elsewhere classified (principal)
CPT/HCPCS: 73221

== ENCOUNTER → 2024-08-18 19:49 | Outpatient (BNV) | payer MEDICAID, SELFPAY | PROVIDERS: PCP Internal Medicine; Visit Provider Radiology Diagnostic Radiology | DX: M19.011 Primary osteoarthritis, right shoulder (principal) | CPT/HCPCS: 73221 ==

== ENCOUNTER 2024-09-17 14:54 | Outpatient (AMB) | payer MEDICAID, SELFPAY ==
--- NOTE | 2024-09-17 14:55 | A.OFFVIS_ITS ---
Intake Visit Reasons: Tel-MRI Shoulder RT review Intake Note: Marzena is a 54 year old right hand dominant male who presents today for an MRI review of his right shoulder. HX of work related injury to the shoulder in 2019, he had a previous cortisone injection which was not helpful IMPRESSION: Moderate osteoarthritis of the AC joint. Otherwise unremarkable MRI of the right shoulder Allergies No Known Allergies Allergy (Verified 08/13/24 14:58) HPI HPI Tel-MRI Shoulder RT review: Details: 54 yo male presents for telehealth MRI f/u rt shoulder. Patient states he continues to have pain with overhead reaching and lifting. He has had injections without relief. States the injection caused more pain. 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 Review of Systems Const All systems reviewed & are unremarkable except as noted in HPI and below Physical Exam Resp Effort & Inspection: normal respiratory effort and able to speak in complete sentences Telehealth Telehealth Telehealth Platform: Telephone Location of provider rendering services: practice address Location of patient: address on file Patient Identification confirmed using: Name, : Yes Telehealth method: voice only Patient verbally consented to treatment: Yes Patient verbally consented to billing insurance company: Yes Patient informed of any privacy concerns related to visit: Yes Minutes spent on Phone/Video with Pt.: 10 Assessment & Plan Assessment & Plan (1) Arthritis of right acromioclavicular joint: Code(s): M19.011 - Primary osteoarthritis, right shoulder Category: Medical (2) Tendinitis of right rotator cuff: Code(s): M75.81 - Other shoulder lesions, right shoulder Category: Medical Plan I offered the patient an injection in the AC joint which she declined. I explained to the patient our options are limited with modifications of activity, physical therapy and cortisone/anti-inflammatories. He is a bit frustrated because he continues to have discomfort and limitations in daily activities. I did recommend an appointment with Dr. Donohue to further assess his MRI and symptoms to see if he would benefit from any type of surgical intervention that would debride or excise the clavicle/ subacromial space. Patient is content with this plan and will follow up as discussed. Coding Level of Care Code Tele Est Pt Level 3 (08595) Complex EM visit Add On G2211 Diagnoses Arthritis of right acromioclavicular joint M19.011 Tendinitis of right rotator cuff M75.81
--- OUTSIDE RECORDS SUMMARY | 2024-09-17 16:06 | XMS_ITS | Clinical Summary ---
Author Organization [facility] ity Address [address] [place] [address] Care Team Providers Care Manager Of It Name Role Phone Unavailable Primary Care Provider Unavailabl e Social History Tobacco Use Types Packs/Day Years Used Date Smoking Tobacco: Never Assessed Sex and Gender Information Value Date Recorded Sex Assigned at Not on file Legal Sex Male 4:52 AM EST Gender Identity Not on file Sexual Orientation Not on file Plan of Treatment Health Maintenance Due Date Last Done Comments DTaP,Tdap,and Td Vaccines (1 - Tdap) 1987 Hepatitis B Vaccines (1 of 3 - 19+ 3-dose series) 1987 Zoster Vaccines (1 of 2) 2018 COVID-19 Vaccine ( - 2023-2 5 season) 2024 Influenza Vaccine (#1) 2024 HIB Vaccines Aged Out No longer eligi ble based on patient's age to complete this topic HPV Vaccines Aged Out No longer eligi ble based on patient's age to complete this topic Hepatitis A Vaccines Aged Out No long er eligible based on patient's age to complete this topic IPV Vaccines Aged Out No longer eligi ble based on patient's age to complete this topic MMR Vaccines Aged Out No longer eligi ble based on patient's age to complete this topic Meningococcal ACWY Vaccine Aged Out N o longer eligible based on patient's age to complete this topic Pneumococcal Vaccine: Pediat rics (0 to 5 Years) and At-Risk Patients (6 to 64 Years) Aged Out No longer eligible b ased on patient's age to complete this topic RSV Immunization Patients Un nita 20 months Aged Out No longer eligible b ased on patient's age to complete this topic Varicella Vaccines Aged Out No longer eligible based on patient's age to complete this topic
== END 2024-09-17 15:20 | disposition home or self-care (01) ==
LOC: HO.HOS 14:54
PROVIDERS: PCP Internal Medicine; Visit Provider Physician Assistant
DX: M19.011 Primary osteoarthritis, right shoulder (principal); M75.81 Other shoulder lesions, right shoulder
CPT/HCPCS: 99213

== ENCOUNTER → 2024-09-17 14:54 | Outpatient (BNVA) | payer MEDICAID, SELFPAY | PROVIDERS: PCP Internal Medicine; Visit Provider Physician Assistant ==

== ENCOUNTER 2025-03-19 09:59 | Outpatient (REF) | payer MEDICAID, SELFPAY ==
--- OUTSIDE RECORDS SUMMARY | 2025-03-19 10:41 | XMS_ITS | Clinical Summary ---
Author Organization [facility] ity Address [address] [place] [address] Care Team Providers Care Pocketbook Maker Name Role Phone Unavailable Primary Care Provider [...] of 3 - 19+ 3-dose series) 1987 Pneumococcal Vaccine: 50+ Ye ars (1 of 1 - PCV) 2018 Zoster Vaccines (1 of 2) 2018 COVID-19 Vaccine ( - 2023-2 5 season) 2024 Depression Screening 08/06/2024 Influenza Vaccine (#1) 2025 HIB Vaccines Aged Out No longer eligi [...] patient's age to complete this topic Meningococcal B Vaccine Aged Out No l onger eligible based on patient's age to complete this topic RSV Immunization Patients Un nita 20 months Aged Out No longer eligible b ased on patient's age to complete this topic Varicella Vaccines Aged Out No longer eligible based on patient's age to complete this topic
[2025-03-19 11:27] LABS: MANUAL DIFF FLAG NO
[2025-03-19 11:39] LABS: Hematocrit 49.3 % (42.0-52.0); Hemoglobin 16.8 g/dl (14.0-18.0); Imm Gran Abs Auto 0.03 X10*3/uL (0.00-0.03); Imm Gran Pct Auto 0.4 % (0.0-0.4); Lymphocytes Absolute Auto 2.6 X10*3/uL (1.2-4.9); Mean Corpuscular HGB Conc 34.1 g/dl (31.0-36.0); Mean Corpuscular Hemoglobin 29.1 pg (27.0-33.0); Mean Corpuscular Volume 85.3 fL (80.0-98.0); NRBC Abs Auto 0.000 X10*3/uL (0.0-0.012); NRBC Pct Auto 0.0 /100WBC (0.0-0.2); Platelet Count 310 X10*3/uL (160-400); Red Blood Count 5.78 X10*6/uL (4.60-5.80); White Blood Count 7.2 X10*3/uL (4.8-10.8)
[2025-03-19 12:09] LABS: Alanine Aminotransferase 24 U/L (0-40); Albumin Level 4.7 g/dL (3.5-5.0); Alkaline Phosphatase 99 U/L (39-117); Anion Gap 13 (12-20); Aspartate Amino Transferase 18 U/L (5-37); Blood Urea Nitrogen 12 mg/dL (9-16); Calcium 10.2 mg/dL (8.4-10.2); Carbon Dioxide 27 mmol/L (22-29); Chloride 101 mmol/L (96-108); Estimated Glomerular Filt Rate > 60; Potassium 4.5 mmol/L (3.3-5.1); Sodium 136 mmol/L (135-145); Total Protein 8.2 g/dL (6.5-8.0)
[2025-03-20 15:28] LABS: HIV RNA PCR Qn Copies 111 copies/mL (NOT DETECTED); HIV RNA PCR Qn Log Copies 2.05 (NOT DETECTED)
== END 2025-03-19 10:00 | disposition home or self-care (01) ==
LOC: HO.HHCL 09:59
PROVIDERS: PCP Student in an Organized Health Care Education/Training Program; Visit Provider Student in an Organized Health Care Education/Training Program
DX: Z21 Asymptomatic human immunodeficiency virus [HIV] infection status (principal); Z11.4 Encounter for screening for human immunodeficiency virus [HIV]
CPT/HCPCS: 36415; 80053; 85025; 87536

== ENCOUNTER 2025-05-16 18:03 | Emergency (ER) | payer MEDICAID, SELFPAY ==
--- NOTE | 2025-05-16 | ECG_ITS ---
Test Reason : CHEST PAIN Blood Pressure : */* mmHG Vent. Rate : 88 BPM Atrial Rate : 88 BPM P-R Int : 132 ms QRS Dur : 98 ms QT Int : 374 ms P-R-T Axes : 45 -31 41 degrees QTcB Int : 452 ms Normal sinus rhythm Left axis deviation Abnormal ECG When compared with ECG of 01-Mar-2022 16:36, No significant change was found Referred By: Generic ED Physician Electronically Signed By: ACOSTA PROCTOR MD
--- NOTE | ~2025-05-16 | XR_ITS ---
CLINICAL HISTORY: CP 1 view chest x-ray Comparison: None provided Findings: No consolidation or effusion. Heart size is normal. No acute fracture. IMPRESSION: 1. No acute findings. This document has been electronically signed by: Eber Fulton MD on 05/16/2025 20:15:35
[2025-05-16 18:14] VITALS: BP 112/71; PULSE 91; RESP 18; TEMP 36.3; O2SAT 99; BMI 25.0
--- NOTE | 2025-05-16 18:15 | ED.GENADULT ---
HPI - General Adult General Chief complaint: Chest Pain Stated complaint: chest pain Time Seen by Provider: 05/16/25 19:07 Source: patient Mode of arrival: ambulatory Limitations: no limitations History of Present Illness ED Provider: DR. Keller HPI narrative: 54-year-old male history of HIV, HTN, HLD, high cholesterol, started to have left-sided chest pain started at 13:00 before coming to the hospital patient was watching TV relaxed with no stress when the pain started pain localized in the left side of the chest with no radiation feels like severe dull aching pain, no associated SOB or dyspnea, no headache, no nausea, no vomiting, no fever, no chills, no trauma to the chest. Related Data Home Medications ?Medication ?Instructions ?Recorded ?Confirmed albuterol sulfate 90 mcg/actuation 2 puff inhalation Q4-6H PRN 06/04/20 06/04/20 aerosol inhaler Shortness Of Breath metformin 500 mg tablet 500 mg PO BID 06/04/20 06/04/20 bictegravir 50 mg-emtricitabine 1 tab PO QAM 08/13/24 08/13/24 200 mg-tenofovir alafenam 25 mg tablet (Biktarvy) empagliflozin 25 mg tablet 25 mg PO QAM 08/13/24 08/13/24 (Jardiance) lisinopril 5 mg tablet 5 mg PO QAM 08/13/24 08/13/24 Allergies Allergy/AdvReac Type Severity Reaction Status Date / Time No Known Allergies Allergy Verified 05/16/25 18:16 Review of Systems Review of Systems: All other systems are reviewed and are negative Constitutional: Reports as per HPI and Reports no additional constitutional complaints Eyes: Reports as per HPI and Reports no additional eye complaints Reports system reviewed and no additional complaints, except as documented Cardiovascular: Reports as per HPI and Reports no additional cardiovascular complaints Respiratory: Reports as per HPI and Reports no additional respiratory complaints Gastrointestinal: Reports as per HPI and Reports no additional gastrointestinal complaints Genitourinary: Reports no additional female genitourinary complaints Musculoskeletal: Reports no additional musculoskeletal complaints Skin/Breast: Reports system reviewed and no additional complaints, except as docu Psychiatric: Reports no additional psychiatric complaints Endocrine: Reports no additional endocrine complaints Hematologic/Lymphatic: Reports no additional hematologic/lymphatic complaints Allergic/Immunologic: Reports no additional allergic/immunologic complaints Reports system reviewed and no additional complaints, except as documented and Reports Abnormal speech present [facility] Past Medical History Medical History No family history of adverse response to anesthesia HIV (human immunodeficiency virus infection) Diabetes Hx of duodenal ulcer Sleep apnea Asthma Elevated cholesterol HTN (hypertension) Surgical History History of esophagogastroduodenoscopy (EGD) Hx of cholecystectomy Social History Social History Alcohol intake: never Years Smoked: 30 Smoked in Last 30 Days: No Use of substances other than those prescribed or required for medical reasons: No Substance Use Type: Crack/Cocaine Advance Directives: No Advance Directives Information Provided: Yes Do you have a plan to hurt others: No Plan Current occupational status: employed 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 Blood pressure elevated. Heart rate normal. Respiratory rate normal. Temperature normal. Oxygen saturation normal. Appearance: Alert. Oriented X3. No acute distress. Head: Normal external exam. Normocephalic. Atraumatic. No Healy signs noted. No raccoon eyes noted Eyes: PERRLA. EOMI. Conjunctiva and sclera normal. Eyelids normal. ENT: TM's Normal. Pharynx normal. Uvula midline. Moist mucous membranes. No trismus noted. No drooling noted. No muffled voice noted. Neck: Normal inspection. Neck supple. FROM. No adenopathy. Thyroid Normal. No meningeal signs. No neck mass noted. CVS: Normal heart rate and rhythm. Heart sound normal. No murmurs noted. Pulses normal throughout. Respiratory: No respiratory distress. Painless inspiration. Breath sounds normal. No wheezes/rales/rhonchi noted. Reproducible left costochondral tenderness, no step-off, no deformity. No accessory muscle usage noted or decreased air movement noted. Abdomen: Soft and nontender. Bowel sounds normal in all 4 quadrants. No distention noted. No organomegaly noted. No visible injury noted. Back: No CVA tenderness. Full range of motion noted. Skin: Skin warm and dry. Normal skin color. Normal skin turgor. No rashes/lesions/lacerations noted. Extremities: No lower extremity edema. Extremities exhibit normal range of motion. Extremities nontender. Neuro: Oriented X 3. Cranial nerve exam: II-XII are grossly intact No motor deficit. No sensory deficit. Reflexes normal. Course Course Course Narrative: This is a Rapid Medical Examination (RME) performed by Margaret Alvarez PA-C in triage. Full HPI, ROS, assessment and treatment plan per primary provider in the Main ED. Hx: 54 yo M here for eval of L sided chest pain radiating to L neck which began while lying down watching TV at 1630 today. approx an hour later, his nose began to bleed for 1 minute before resolving. no cardiac hx. no thinners. no sob, N/V, cough. PE/vitals: well appearing. Plan: labs, ekg Reevaluation(s) Reevaluation #1: Left chest wall reproducible tenderness consistent with costochondritis, negative cardiac workup, negative D-dimer. Will reassure with the patient recommended NSAIDs if needed for pain. Time: 20:30 Medical Decision Making Differential Diagnosis Differential Diagnoses: The differential diagnosis associated with the presentation includes (ACS, pneumonia, pneumothorax, pleural effusion, pulmonary embolism, electrolyte derangement, severe anemia.) Admission/Observation Consideration of admission/observation: Escalation of care including admission/observation considered Lab Data MDM Lab Attestation statement: I reviewed the patient's lab results. 05/16/25 18:28 05/16/25 18:28 Labs: Lab Results 05/16/25 Range/Units 18:28 WBC 7.9 (4.8-10.8) X10*3/uL RBC 5.26 (4.60-5.80) X10*6/uL Hgb 15.6 (14.0-18.0) g/dl Hct 45.9 (42.0-52.0) % MCV 87.3 (80.0-98.0) fL MCH 29.7 (27.0-33.0) pg MCHC 34.0 (31.0-36.0) g/dl RDW 13.2 (11.0-16.0) % Plt Count 297 (160-400) X10*3/uL MPV 9.2 L (9.4-12.4) fL Immature Gran % (Auto) 0.1 (0.0-0.4) % Neut % (Auto) 50.0 (45-73) % Lymph % (Auto) 40.7 H (20-40) % [place] % (Auto) 5.8 (2-11) % Eos % (Auto) 2.3 (0-4) % Baso % (Auto) 1.1 (0-2) % Lymph # (Auto) 3.2 (1.2-4.9) X10*3/uL [place] # (Auto) 0.5 (0.1-1.2) X10*3/uL Eos # (Auto) 0.2 (0.0-0.4) X10*3/uL Baso # (Auto) 0.1 (0.0-0.2) X10*3/uL Abs Immat Gran (auto) 0.01 (0.00-0.03) X10*3/uL Absolute Neuts (auto) 3.9 (2.0-8.3) x10*3/uL Absolute Nucleated RBC 0.000 (0.0-0.012) X10*3/uL Nucleated RBC % (auto) 0.0 (0.0-0.2) /100WBC Sodium 139 (135-145) mmol/L Potassium 4.2 (3.3-5.1) mmol/L Chloride 104 (96-108) mmol/L Carbon Dioxide 26 (22-29) mmol/L Anion Gap 13 (12-20) BUN 14 (9-16) mg/dL Creatinine 1.05 (0.5-1.4) mg/dL Estim Creat Clear Calc 83.6 Estimated GFR > 60 Random Glucose 240 H (60-115) mg/dL Calcium 9.3 D (8.4-10.2) mg/dL Magnesium 2.1 (1.6-2.6) mg/dL Total Bilirubin 0.4 (0.0-1.0) mg/dL AST 21 (5-37) U/L ALT 28 (0-40) U/L Alkaline Phosphatase 77 (39-117) U/L Troponin I High Sens < 2.7 (<3.5-35.0) ng/L Total Protein 7.7 (6.5-8.0) g/dL Albumin 4.5 (3.5-5.0) g/dL Lipase 28 (8-78) U/L Independent Interpretation I performed an independent interpretation of an: EKG (Normal sinus rhythm at 88 beats per minutes, normal intervals, left axis deviation, no ST-T changes, no change from prior EKG.) and Plain X-Ray (Chest: No acute intrathoracic pathology.) Radiology Impression Discussion of test interpretation with radiology: I have reviewed the radiologist's reading. Discharge Plan Discharge Clinical Impression: Costochondritis Patient Disposition: Home, Self-Care Instructions: Costochondritis (ED) Prescriptions: No Action metformin 500 mg Tablet 500 mg PO BID albuterol sulfate 90 mcg/actuation Hfa Aerosol Inhaler 2 puff INHALATION Q4-6H PRN (Reason: Shortness Of Breath) lisinopril 5 mg tablet 5 mg PO QAM Biktarvy 50-200-25 mg tablet 1 tab PO QAM Jardiance 25 mg tablet 25 mg PO QAM Referrals: Thao Miller MD [Primary Care Provider, Internal Medicine] Print Language: Kazakh
[2025-05-16 18:32] LABS: MANUAL DIFF FLAG NO
[2025-05-16 18:34] VITALS: PULSE 79; RESP 18; O2SAT 99
[2025-05-16 18:35] VITALS: BP 116/87
[2025-05-16 18:38] LABS: Hematocrit 45.9 % (42.0-52.0); Hemoglobin 15.6 g/dl (14.0-18.0); Imm Gran Abs Auto 0.01 X10*3/uL (0.00-0.03); Imm Gran Pct Auto 0.1 % (0.0-0.4); Lymphocytes Absolute Auto 3.2 X10*3/uL (1.2-4.9); Mean Corpuscular HGB Conc 34.0 g/dl (31.0-36.0); Mean Corpuscular Hemoglobin 29.7 pg (27.0-33.0); Mean Corpuscular Volume 87.3 fL (80.0-98.0); NRBC Abs Auto 0.000 X10*3/uL (0.0-0.012); NRBC Pct Auto 0.0 /100WBC (0.0-0.2); Platelet Count 297 X10*3/uL (160-400); Red Blood Count 5.26 X10*6/uL (4.60-5.80); White Blood Count 7.9 X10*3/uL (4.8-10.8)
[2025-05-16 18:49] LABS: Alanine Aminotransferase 28 U/L (0-40); Albumin Level 4.5 g/dL (3.5-5.0); Alkaline Phosphatase 77 U/L (39-117); Anion Gap 13 (12-20); Aspartate Amino Transferase 21 U/L (5-37); Blood Urea Nitrogen 14 mg/dL (9-16); Calcium 9.3 mg/dL (8.4-10.2); Carbon Dioxide 26 mmol/L (22-29); Chloride 104 mmol/L (96-108); Creatinine Clr Calc Pharmacy 83.6; Estimated Glomerular Filt Rate > 60; Lipase 28 U/L (8-78); Magnesium 2.1 mg/dL (1.6-2.6); Potassium 4.2 mmol/L (3.3-5.1); Sodium 139 mmol/L (135-145); Total Protein 7.7 g/dL (6.5-8.0)
[2025-05-16 18:58] LABS: Troponin-I High Sensitivity < 2.7 ng/L (<3.5-35.0)
--- OUTSIDE RECORDS SUMMARY | 2025-05-16 19:00 | XMS_ITS | Clinical Summary ---
Author Organization [facility] ity Address [address] [place] [address] Care Team Providers Care Dynamite Reclaimer Name Role Phone Unavailable Primary Care Provider [...] 2018 Zoster Vaccines (1 of 2) 2018 Depression Screening 08/06/2024 COVID-19 Vaccine (1 - 2023-2 5 season) 2025 Influenza Vaccine (#1) 2025 RSV Immunization Adult Patie nts (1 - 1-dose 75+ series) 2043 HIB Vaccines Aged Out No longer eligi [...]
[2025-05-16 20:19] LABS: D Dimer High Sensitivity < 150 NG/ML
[2025-05-16 20:58] LABS: Troponin-I High Sensitivity < 2.7 ng/L (<3.5-35.0)
[2025-05-16 21:17] VITALS: BP 109/78; PULSE 79; RESP 18; TEMP 36.7; O2SAT 98
[2025-05-16 21:36] VITALS: BP 110/76; PULSE 79; RESP 18; TEMP 36.7; O2SAT 98
== END 2025-05-16 21:44 | disposition home or self-care (01) ==
PROVIDERS: Physician Assistant Medical; Emergency Provider Emergency Medicine; PCP Student in an Organized Health Care Education/Training Program
DX: M94.0 Chondrocostal junction syndrome [Tietze] (principal); R07.89 Other chest pain; I10 Essential (primary) hypertension; Z79.899 Other long term (current) drug therapy
CPT/HCPCS: 36415; 71045; 80053; 83690; 83735; 84484; 85025; 85379; 93005; 99283; 99285

== ENCOUNTER → 2025-05-16 18:08 | Outpatient (BNV) | payer MEDICAID, SELFPAY | PROVIDERS: Emergency Provider Emergency Medicine; PCP Student in an Organized Health Care Education/Training Program; Visit Provider Internal Medicine Cardiovascular Disease | DX: R94.31 Abnormal electrocardiogram [ECG] [EKG] (principal); R07.89 Other chest pain | CPT/HCPCS: 93010 ==

== ENCOUNTER → 2025-05-16 19:33 | Outpatient (BNV) | payer MEDICAID, SELFPAY | PROVIDERS: Emergency Provider Emergency Medicine; PCP Student in an Organized Health Care Education/Training Program; Visit Provider Radiology Diagnostic Radiology | DX: R07.9 Chest pain, unspecified (principal) | CPT/HCPCS: 71045 ==